=== PATIENT | female | born 1940 | race Caucasian/White ===

== ENCOUNTER 2016-11-13 10:43 | Emergency (ER) | payer MEDICARE ==
[~2016-11-13] VITALS: Ht 165.1 cm; Wt 55.0 kg
[~2016-11-13 10:43] MED LIST: ASPI81TA82 PO; BIOT5000 PO; CALCCHW25 PO; CHOL1CAP6 PO; CLA1000C PO; CO Q200C3 PO; GLUC500C3 PO; IRBE150T4 PO; LEVO.1 PO; MAGN500T4 PO; OMEG5CAP PO; POTA550T4 PO; TAB-TAB PO; VITA10002 PO; [UNRECOGNIZED DRUG - OTHER] PO
[2016-11-13 10:45] VITALS: BP 188/77; PULSE 107; RESP 18; TEMP 98.4; O2SAT 96
--- NOTE | 2016-11-13 10:52 | PD ---
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 Endorses GUTIERRES. Patient denies chest pain, palpitations, fevers, chills, rhinorrhea, abdominal pain, nausea, vomiting. Patient states that she was feeling well yesterday, saw her PCP for a scheduled checkup which was normal. She endorses receiving this year's flu vaccination. Endorses sick contacts, states family members have had similar symptoms. PCP is Dr.Chris Rubio, career development consultant Dr. Juan Orourke. PFSH Past Medical History Asthma: Yes Cancer: Yes (SKIN CANCERS) Cardiovascular Problems: Yes (HEART MURMUR, LEAKY AORTIC VALVE, MITRAL VALVUE ISSUE) Diminished Hearing: No Endocrine: Yes Genitourinary: No Hypertension: Yes Musculoskeletal: Yes (STIFFNESS IN NECK, LEG CRAMPS AT NIGHT) Neurologic: No Psychiatric: No Respiratory: No Immunizations Current: Yes Thyroid Disease: Yes (MASS IN THYROID) Past Surgical History Abdominal Surgery: Yes (APPENDECTOMY) Appendectomy: Yes Body Medical Devices: BREAST IMPLANTS Endocrine Surgery: Yes (THROIDECTOMY) Gynecologic Surgery: Yes (HYSTERECTOMY) Hysterectomy: Yes Oral Surgery: Yes (T&A) Thoracic Surgery: Yes (BREAST IMPLANTS) Tonsillectomy: Yes Other Surgery: Yes Social History Alcohol Use: No Tobacco Use: No Substance Use: No Allergies-Medications (Allergen,Severity, Reaction): Coded Allergies: Contrast Media (Verified Allergy, Severe, Anaphylaxis, 03/22/15) Iohexol (OMNIPAQUE) (Verified Allergy, Severe, Anaphylaxis, 03/22/15) Reported Meds & Prescriptions Reported Meds & Active Scripts Active Reported Aspir-81 (Aspirin) 81 Mg Tab 81 Mg PO DAILY Cla (Safflower Oil) 1,000 Mg Cap 1,000 Mg PO DAILY Glucosamine (Glucosamine Hydrochloride) 500 Mg Tab 1,500 Mg PO DAILY Calcium + D (Calcium Carbonate/Cholecalciferol) Chw 1 Tab PO HS Magnesium 500 Mg Tab 500 Mg PO DAILY [Maxamino] 1,200 Mg PO DAILY Biotin 5 000 Tab 10,000 Mcg PO DAILY Potassium Gluconate 550 mg (Potassium Gluconate) 550 Mg Tab 1 Tab PO DAILY Co Q10 (Coenzyme Q10) 200 Mg Cap 200 Mg PO DAILY Fish Oil 1200 mg ([place]-3 Fatty Acids) 1 Cap Cap 1 Cap PO DAILY Vitamin D-3 (Cholecalciferol) 1,000 Unit Tab 1,000 Unit PO DAILY Vitamin B12 (Cyanocobalamin) 1,000 Mcg Tab 5,000 Mcg PO DAILY Multivitamin (Multivitamins) 1 Tab Tab 1 Tab PO DAILY Irbesartan 150 Mg Tab 150 Mg PO DAILY Synthroid 100 mcg (Levothyroxine Sodium) 100 Mcg Tab 100 Mcg PO DAILY Review of Systems Except as stated in HPI: all other systems reviewed are Neg Physical Exam Narrative GENERAL: Well-nourished, well-developed white female in no acute distress. Patient's voice is hoarse and raspy, secondary to vocal cord paralysis. SKIN: Warm and dry. HEAD: Normocephalic. EYES: No scleral icterus. No injection or drainage. NECK: Supple, trachea midline. No JVD or lymphadenopathy. CARDIOVASCULAR: Regular rate and rhythm without murmurs, gallops, or rubs. RESPIRATORY: Breath sounds equal bilaterally. Coarse breath sounds in all lung perez. + accessory muscle use. GASTROINTESTINAL: Abdomen soft, non-tender, nondistended. MUSCULOSKELETAL: No cyanosis, or edema. Hohmann sign negative bilaterally. BACK: No obvious deformity. No CVA tenderness. Data Data Last Documented VS Vital Signs Date Time Temp Pulse Resp B/P Pulse Ox O2 Delivery O2 Flow Rate FiO2 11/13/16 11:29 97 Room Air 11/13/16 11:29 100 24 171/82 11/13/16 10:45 98.4 Orders Complete Blood Count With Diff (11/13/16 10:54) Iv Access Insert/Monitor (11/13/16 10:54) Oxygen Administration (11/13/16 10:54) Oximetry (11/13/16 10:54) Electrocardiogram (11/13/16 10:54) Comprehensive Metabolic Panel (11/13/16 11:02) B-Type Natriuretic Peptide (11/13/16 11:02) Act Partial Throm Time (Ptt) (11/13/16 11:02) Prothrombin Time / Inr (Pt) (11/13/16 11:02) Magnesium (Mg) (11/13/16 11:02) Ckmb (Isoenzyme) Profile (11/13/16 11:02) Troponin I (11/13/16 11:02) Urinalysis - C+S If Indicated (11/13/16 11:02) Influenzae A/B Antigen (11/13/16 11:02) Blood Culture (11/13/16 11:02) Ecg Monitoring (11/13/16 11:02) Chest, Single Ap (11/13/16 11:02) Sodium Chloride 0.9% Flush (Ns Flush) (11/13/16 11:15) Albuterol-Ipratropium Neb (Duoneb Neb) (11/13/16 11:15) Dexamethasone Inj (Decadron Inj) (11/13/16 11:15) D-Dimer (11/13/16 11:41) Dexamethasone Inj (Decadron Inj) (11/13/16 11:45) Labs Laboratory Tests Test 11/13/16 11:05 White Blood Count 4.5 TH/MM3 Red Blood Count 4.85 MIL/MM3 Hemoglobin 15.1 GM/DL Hematocrit 45.1 % Mean Corpuscular Volume 92.8 FL Mean Corpuscular Hemoglobin 31.1 PG Mean Corpuscular Hemoglobin 33.5 % Concent Red Cell Distribution Width 14.5 % Platelet Count 202 TH/MM3 Mean Platelet Volume 8.3 FL Neutrophils (%) (Auto) 62.6 % Lymphocytes (%) (Auto) 21.5 % Monocytes (%) (Auto) 14.5 % Eosinophils (%) (Auto) 0.4 % Basophils (%) (Auto) 1.0 % Neutrophils # (Auto) 2.8 TH/MM3 Lymphocytes # (Auto) 1.0 TH/MM3 Monocytes # (Auto) 0.7 TH/MM3 Eosinophils # (Auto) 0.0 TH/MM3 Basophils # (Auto) 0.0 TH/MM3 CBC Comment DIFF FINAL Differential Comment Prothrombin Time 11.2 SEC Prothromb Time International 1.0 RATIO Ratio Activated Partial 27.5 SEC Thromboplast Time MDM Medical Decision Making Medical Screen Exam Complete: Yes Emergency Medical Condition: Yes Differential Diagnosis Influenza versus pneumonia versus aspiration pneumonia versus PE versus CHF versus other Narrative Course 76 year old female with PMH of severe AI with normal EF, glottal stenosis, 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 Patient denies chest pain, palpitations, fevers, chills, rhinorrhea, abdominal pain, nausea, vomiting. She endorses this year's flu vaccination. Endorses sick contacts, states family members have had similar symptoms. PCP is Dr.Chris Rubio, career development consultant Dr. Juan Orourke. Vitals reviewed. Patient is afebrile, tachycardic rate 107, 96% O2 saturation on room air, BP 188 /77 on presentation. Physical exam reveals a nontoxic-appearing white female in no acute distress. Her voice is raspy and she is unable to project secondary to vocal cord paralysis. There are coarse lung sounds in bilateral lung perez. Equal pulses in the extremities bilaterally. No lower extremity edema noted. Lab work, EKG, chest x-ray, blood cultures ordered. The patient was administered duo nebs 2. She'll be transferred to a medical bed under the care of Dr. Cheney. Please see his note for disposition. She Ramos Nov 13, 2016 10:52
[2016-11-13] MEDS: RESP: ALBUTEROL 2.5 MG/IPRATROPIUM 0.5 MG NEB (SCH) INH (11:05)
[2016-11-13] MEDS ORDERED: SODIUM CHLORIDE 0.9% FLUSH 5 ML FLUSH IVF PRN (11:15)
[2016-11-13] MEDS ORDERED: DEXAMETHASONE SOD PHOS 4 MG/ML VIAL IM ONE (11:15)
[2016-11-13 11:29] VITALS: BP 171/82; PULSE 100; RESP 24; O2SAT 97; O2SAT 98
[2016-11-13 11:30] LABS: AUTOMATED NEUTROPHIL # 2.8 TH/MM3 (1.8-7.7); EOSINOPHIL % 0.4 % (0.0-4.0); HEMATOCRIT 45.1 % (35.0-46.0); HEMO FLAGS DIFF FINAL; LYMPH % 21.5 % (9.0-44.0); MEAN CELL VOLUME 92.8 FL (80.0-100.0); MEAN CORPUSCULAR HEMOGLOBIN 31.1 PG (27.0-34.0); MEAN CORPUSCULAR HGB CONC 33.5 % (32.0-36.0); MONO % 14.5 % (0.0-8.0); NEUT % 62.6 % (16.0-70.0); PLATELET COUNT 202 TH/MM3 (150-450); RED BLOOD COUNT 4.85 MIL/MM3 (4.00-5.30); RED CELL DISTRIBUTION WIDTH 14.5 % (11.6-17.2); WHITE BLOOD COUNT 4.5 TH/MM3 (4.0-11.0)
[2016-11-13 11:35] LABS: APTT (PATIENT) 27.5 SEC (24.3-30.1); PROTHROMBIN TIME - PATIENT 11.2 SEC (9.8-11.6)
[2016-11-13] MEDS ORDERED: DEXAMETHASONE SOD PHOS 4 MG/ML VIAL IV PUSH ONE (11:45)
--- NOTE | 2016-11-13 11:49 | PD ---
Physical Exam Date Seen by Provider: Nov 13, 2016 Time Seen by Provider: 11:47 Narrative The patient is a 76 year-old female was initially evaluated by the mid -level provider, please refer to the initial history, physical, diagnostic evaluation, treatment modality plan. The patient was signed out with labs, x- ray, and disposition pending. Data Data Last Documented VS Vital Signs Date Time Temp Pulse Resp B/P Pulse Ox O2 Delivery O2 Flow Rate FiO2 11/13/16 16:06 96 18 164/72 95 Room Air 11/13/16 10:45 98.4 Orders Complete Blood Count With Diff (11/13/16 10:54) Iv Access Insert/Monitor (11/13/16 10:54) Oxygen Administration (11/13/16 10:54) Oximetry (11/13/16 10:54) Electrocardiogram (11/13/16 10:54) Comprehensive Metabolic Panel (11/13/16 11:02) B-Type Natriuretic Peptide (11/13/16 11:02) Act Partial Throm Time (Ptt) (11/13/16 11:02) Prothrombin Time / Inr (Pt) (11/13/16 11:02) Magnesium (Mg) (11/13/16 11:02) Ckmb (Isoenzyme) Profile (11/13/16 11:02) Troponin I (11/13/16 11:02) Urinalysis - C+S If Indicated (11/13/16 11:02) Influenzae A/B Antigen (11/13/16 11:02) Blood Culture (11/13/16 11:02) Ecg Monitoring (11/13/16 11:02) Chest, Single Ap (11/13/16 11:02) Sodium Chloride 0.9% Flush (Ns Flush) (11/13/16 11:15) Albuterol-Ipratropium Neb (Duoneb Neb) (11/13/16 11:15) Dexamethasone Inj (Decadron Inj) (11/13/16 11:15) D-Dimer (11/13/16 11:41) Dexamethasone Inj (Decadron Inj) (11/13/16 11:45) CKMB (11/13/16 11:05) CKMB% (11/13/16 11:05) Ventilation & Perfusion Scan (11/13/16 ) Labs Laboratory Tests Test 11/13/16 11/13/16 11:05 11:49 White Blood Count 4.5 TH/MM3 Red Blood Count 4.85 MIL/MM3 Hemoglobin 15.1 GM/DL Hematocrit 45.1 % Mean Corpuscular Volume 92.8 FL Mean Corpuscular Hemoglobin 31.1 PG Mean Corpuscular Hemoglobin 33.5 % Concent Red Cell Distribution Width 14.5 % Platelet Count 202 TH/MM3 Mean Platelet Volume 8.3 FL Neutrophils (%) (Auto) 62.6 % Lymphocytes (%) (Auto) 21.5 % Monocytes (%) (Auto) 14.5 % Eosinophils (%) (Auto) 0.4 % Basophils (%) (Auto) 1.0 % Neutrophils # (Auto) 2.8 TH/MM3 Lymphocytes # (Auto) 1.0 TH/MM3 Monocytes # (Auto) 0.7 TH/MM3 Eosinophils # (Auto) 0.0 TH/MM3 Basophils # (Auto) 0.0 TH/MM3 CBC Comment DIFF FINAL Differential Comment Prothrombin Time 11.2 SEC Prothromb Time International 1.0 RATIO Ratio Activated Partial 27.5 SEC Thromboplast Time Sodium Level 138 MEQ/L Potassium Level 4.2 MEQ/L Chloride Level 104 MEQ/L Carbon Dioxide Level 27.2 MEQ/L Anion Gap 7 MEQ/L Blood Urea Nitrogen 17 MG/DL Creatinine 0.75 MG/DL Estimat Glomerular Filtration 75 ML/MIN Rate Random Glucose 97 MG/DL Calcium Level 8.9 MG/DL Magnesium Level 2.0 MG/DL Total Bilirubin 0.8 MG/DL Aspartate Amino Transf 35 U/L (AST/SGOT) Alanine Aminotransferase 28 U/L (ALT/SGPT) Alkaline Phosphatase 79 U/L Total Creatine Kinase 378 U/L Creatine Kinase MB 3.6 NG/ML Creatine Kinase MB % 1.0 % Troponin I 0.02 NG/ML B-Type Natriuretic Peptide 48 PG/ML Total Protein 7.9 GM/DL Albumin 4.1 GM/DL D-Dimer Quantitative (PE/DVT) 0.71 MG/L [facility] Medical Record Reviewed: Yes Supervised Visit with MONICA: Yes Interpretation(s) Laboratory Tests Test 11/13/16 11/13/16 11:05 11:49 White Blood Count 4.5 TH/MM3 Red Blood Count 4.85 MIL/MM3 Hemoglobin 15.1 GM/DL Hematocrit 45.1 % Mean Corpuscular Volume 92.8 FL Mean Corpuscular Hemoglobin 31.1 PG Mean Corpuscular Hemoglobin 33.5 % Concent Red Cell Distribution Width 14.5 % Platelet Count 202 TH/MM3 Mean Platelet Volume 8.3 FL Neutrophils (%) (Auto) 62.6 % Lymphocytes (%) (Auto) 21.5 % Monocytes (%) (Auto) 14.5 % Eosinophils (%) (Auto) 0.4 % Basophils (%) (Auto) 1.0 % Neutrophils # (Auto) 2.8 TH/MM3 Lymphocytes # (Auto) 1.0 TH/MM3 Monocytes # (Auto) 0.7 TH/MM3 Eosinophils # (Auto) 0.0 TH/MM3 Basophils # (Auto) 0.0 TH/MM3 CBC Comment DIFF FINAL Differential Comment Prothrombin Time 11.2 SEC Prothromb Time International 1.0 RATIO Ratio Activated Partial 27.5 SEC Thromboplast Time Sodium Level 138 MEQ/L Potassium Level 4.2 MEQ/L Chloride Level 104 MEQ/L Carbon Dioxide Level 27.2 MEQ/L Anion Gap 7 MEQ/L Blood Urea Nitrogen 17 MG/DL Creatinine 0.75 MG/DL Estimat Glomerular Filtration 75 ML/MIN Rate Random Glucose 97 MG/DL Calcium Level 8.9 MG/DL Magnesium Level 2.0 MG/DL Total Bilirubin 0.8 MG/DL Aspartate Amino Transf 35 U/L (AST/SGOT) Alanine Aminotransferase 28 U/L (ALT/SGPT) Alkaline Phosphatase 79 U/L Total Creatine Kinase 378 U/L Creatine Kinase MB 3.6 NG/ML Creatine Kinase MB % 1.0 % Troponin I 0.02 NG/ML B-Type Natriuretic Peptide 48 PG/ML Total Protein 7.9 GM/DL Albumin 4.1 GM/DL D-Dimer Quantitative (PE/DVT) 0.71 MG/L FEU Last Impressions Chest X-Ray 11/13/16 1102 Signed Impressions: Service Date/Time: October 11:38 - CONCLUSION: 1. There is obscuration of the left costophrenic sulcus which could be related to small pleural effusion or potentially obscured due to the adjacent heart. 2. Hazy opacity at the right lung base most likely representing atelectasis. Bj Berger MD Lung Scan- Nuclear Medicine 11/13/16 0000 Signed Impressions: Service Date/Time: October 15:02 - CONCLUSION: 1. The examination is negative for pulmonary embolus. Franklin Cha MD Differential Diagnosis Differential diagnosis includes reactive airway disease, bronchitis, pneumonia, congestive heart failure, cardiomyopathy, pleural effusion, pneumothorax, pulmonary embolism, acute coronary syndrome. Narrative Course I, Dr. Cheney, have reviewed the advance practice practitioner's documentation and am in agreement, met with the patient face to face, made the diagnosis, and the medical decision making was done by me. *My assessment and Findings: 76-year-old female with a history of partial vocal cord paralysis on the right secondary to thyroid surgery urine half ago by Dr. Chauhan. The patient notes a 2 day history of shortness of breath with worsening symptoms. The patient has exertional symptoms of shortness of breath as well as mild orthopnea. She also complains of a dry nonproductive cough, states she cannot "get the phlegm out ". The patient denies any history of bronchitis, COPD, asthma, or congestive heart failure. She denies any history of tobacco use. The patient denies any company chest pain with her shortness of breath, but does noted exertional, worse with climbing stairs, and mildly alleviated at rest. The patient denies any history of pulmonary embolism, DVT, recent hospitalizations, recent surgery, or recent prolonged travel. She denies any swollen of the lower extremities. Therefore, chest x-ray was obtained, d-dimer was sent to lab to evaluate the necessity to rule out PE. Patient is allergic to contrast media, therefore, no initial CT pulmonary angiogram was ordered. The patient was administered Decadron intravenously and duo nebs. The patient's VQ scan is negative. The patient does have a nebulizer machine at home that she can use, will be treated for bronchitis. The patient does have aortic sent insufficiency insufficiency, recently had an echocardiogram performed by her deputy insurance commissioner, Dr. Orourke, on October 30, 2016. She is advised to follow-up with her primary physician and her deputy insurance commissioner. Diagnosis Primary Impression: Bronchitis Additional Impression: Dyspnea Qualified Code: R06.00 - Dyspnea, unspecified type Patient Instructions: General Instructions Additional Instruction: Medications as directed. Follow-up with your primary physician. Return if symptoms worsen or progress. Please provide a patient a copy of her V/Q results , chest x-ray results, and lab results at discharge. Med/Other Pt SpecificInfo: Prescription(s) given Scripts Guaifenesin-Codeine Liq 100-10 Mg/5 Ml Soln5 Ml PO Q6H PRN (COUGH) #1 BOTTLE Ref 0 Prov:Dewey Cheney MD 11/13/16 Albuterol Neb 2.5 Mg/3 Ml Neb2.5 Mg NEB Q4HR NEB #60 NEBULE Ref 0 While awake Prov:Dewey Cheney MD 11/13/16 Prednisone (Deltasone)20 Mg Tab40 Mg PO DAILY 4 Days Ref 0 Prov:Dewey Cheney MD 11/13/16 Azithromycin (Zithromax Z-Nirav)250 Mg Avcs524 Mg PO DIRECTED #1 DSPK Ref 0 500 MG (2 tabs) day 1, then 1 tab days 2-5. Prov:Dewey Cheney MD 11/13/16 Disposition: 01 DISCHARGE HOME Condition: Stable Dewey Cheney MD Nov 13, 2016 11:49
[2016-11-13 11:54] LABS: ALKALINE PHOSPHATASE 79 U/L (45-117); ALT (GPT) 28 U/L (10-53); ANION GAP 7 MEQ/L (5-15); AST (GOT) 35 U/L (15-37); BICARBONATE 27.2 MEQ/L (21.0-32.0); BLOOD UREA NITROGEN 17 MG/DL (7-18); CHLORIDE 104 MEQ/L (98-107); CREATINE KINASE 378 U/L (26-192); GLOMERULAR FILTRATION RATE 75 ML/MIN (>89); SODIUM (NA) 138 MEQ/L (136-145); TOTAL BILIRUBIN ADULT 0.8 MG/DL (0.2-1.0)
--- NOTE | 2016-11-13 11:54 | RADRPT ---
EXAM DATE/TIME: 11/13/2016 11:38 [facility] COMPARISON: CHEST SINGLE AP, January 15, 2015, 16:49. INDICATIONS : Short of breath. MEDICAL HISTORY : None. SURGICAL HISTORY : None. ENCOUNTER: Initial ACUITY: 1 day PAIN SCORE: 0/10 LOCATION: Bilateral chest FINDINGS: Portable AP view of the chest demonstrates a normal-sized cardiac silhouette with calcification of th e aorta. There is blunting of the left costophrenic sulcus and there is mild hazy opacity at the righ t lung base. No pneumothorax or definite airspace consolidation is seen. Bones and soft tissues demon strate no acute finding. Breast implants are present. CONCLUSION: 1. There is obscuration of the left costophrenic sulcus which could be related to small pleural effus ion or potentially obscured due to the adjacent heart. 2. Hazy opacity at the right lung base most likely representing atelectasis. Bj Berger MD on November 13, 2016 at 11:51 Board Certified Radiologist. This report was verified electronically.
[2016-11-13 12:02] LABS: POTASSIUM 4.2 MEQ/L (3.5-5.1)
[2016-11-13 12:15] LABS: CKMB 3.6 NG/ML (0.5-3.6)
[2016-11-13 12:21] VITALS: BP 178/78; PULSE 96; RESP 20; O2SAT 94
[2016-11-13] MEDS ORDERED: COQ1200C PO (12:31)
[2016-11-13] MEDS ORDERED: ASPI1TAB91 PO (12:31)
[2016-11-13] MEDS ORDERED: VITA100018 PO (12:31)
[2016-11-13] MEDS ORDERED: POTA2.5T PO (12:31)
[2016-11-13] MEDS ORDERED: BIOT1SUB PO (12:31)
[2016-11-13] MEDS ORDERED: MULT-135 PO (12:31)
[2016-11-13] MEDS ORDERED: LEVO100T5 PO (12:31)
[2016-11-13] MEDS ORDERED: CYAN1TAB22 PO (12:31)
[2016-11-13] MEDS ORDERED: IRBE150T15 PO (12:31)
[2016-11-13] MEDS ORDERED: CALCTAB80 PO (12:31)
[2016-11-13] MEDS ORDERED: GLUC500C5 PO (12:31)
[2016-11-13] MEDS ORDERED: OMEG5CAP PO (12:31)
[2016-11-13] MEDS ORDERED: MAGN500T4 PO (12:31)
--- NOTE | 2016-11-13 15:45 | RADRPT ---
EXAM DATE/TIME: 11/13/2016 15:02 [facility] COMPARISON: No previous studies available for comparison. INDICATIONS : Shortness of breath with tachycardia. DOSE: 7.2 mCi Tc99m MAA IV 1.1 mCi Tc99m DTPA aerosol MEDICAL HISTORY : Carcinoma, basal cell. SURGICAL HISTORY : Thyroidectomy. Hysterectomy. Breast implants. ENCOUNTER: Initial ACUITY: 2 days PAIN SCALE: 3/10 LOCATION: Bilateral chest TECHNIQUE: Following five minutes of tidal breathing of DTPA aerosol, planar images of the lungs were performed in eight projections. The patient was then injected with MAA, and eight-view perfusion scan was perf ormed. FINDINGS: There is a homogeneous pattern of aerosol delivery to the periphery of both lungs. No focal ventilat ory defects are seen. The perfusion lung scan demonstrates a homogenous pattern of uptake in both lungs. No segmental or s ubsegmental defects are seen. CONCLUSION: 1. The examination is negative for pulmonary embolus. Franklin Cha MD on November 13, 2016 at 15:43 Board Certified Radiologist. This report was verified electronically.
[2016-11-13 16:06] VITALS: BP 164/72; PULSE 96; RESP 18; O2SAT 95
[2016-11-13] MEDS ORDERED: ZITHTAB PO (16:48)
[2016-11-13] MEDS ORDERED: GUAI100S5 PO (16:48)
[2016-11-13] MEDS ORDERED: ALBU0.08 NEB (16:48)
[2016-11-13] MEDS ORDERED: PRED-503 PO (16:48)
--- NOTE | 2016-11-13 17:05 | EKG ---
Date Performed: 11/13/2016 Time Performed: 11:15:17 PTAGE: 76 years EKG: Sinus rhythm WITH FIRST DEGREE AV BLOCK POSSIBLE LEFT ATRIAL ENLARGEMENT SEPTAL MYOCARDIAL INFARCTION There is si gnificant artifact in particular the limb leads. ABNORMAL ECG PREVIOUS TRACING : 02/16/2006 14.22 DOCTOR: Atilio Muir Interpretating Date/Time 11/13/2016 17:03:17
== END 2016-11-13 21:46 | disposition home or self-care (01) ==
LOC: NEPE 10:43
DX: J40 Bronchitis, not specified as acute or chronic (principal); I10 Essential (primary) hypertension; I44.0 Atrioventricular block, first degree; R94.31 Abnormal electrocardiogram [ECG] [EKG]
CPT/HCPCS: 71010; 78582; 80053; 82550; 82552; 83735; 83880; 84484; 85025; 85379; 85610; 85730; 87040; 87804; 93005; 94664; 96374; 99285; A9540; A9567; J1100

== ENCOUNTER 2017-08-08 02:46 | Inpatient (IN) | payer MEDICARE ==
[~2017-08-08] VITALS: Ht 165.1 cm; Wt 58.0 kg
[2017-08-08] VITALS (12 sets, daily range): BP systolic 99–183; BP diastolic 53–79; PULSE 84–116; RESP 16–30; TEMP 98.2–98.6; O2SAT 94–99
[~2017-08-08 02:46] MED LIST changes: +ALBU0.08 NEB; +ASPI1TAB91 PO; -ASPI81TA82 PO; +BIOT1SUB PO; -BIOT5000 PO; -CALCCHW25 PO; +CALCTAB80 PO; -CHOL1CAP6 PO; -CLA1000C PO; -CO Q200C3 PO; +COQ1200C PO; +CYAN1TAB22 PO; -GLUC500C3 PO; +GLUC500C5 PO; +GUAI100S5 PO; +IRBE150T15 PO; -IRBE150T4 PO; -LEVO.1 PO; +LEVO100T5 PO; +MULT-135 PO; +POTA2.5T PO; -POTA550T4 PO; +PRED-503 PO; -TAB-TAB PO; +VITA100018 PO; -VITA10002 PO; +ZITHTAB PO; -[UNRECOGNIZED DRUG - OTHER] PO
--- NOTE | 2017-08-08 03:10 | PD ---
HPI Chief Complaint: Respiratory Symptoms Time Seen by Provider: 02:58 Travel History International Travel<30 days: No Contact w/Intl Traveler<30days: No Traveled to known affect area: No History of Present Illness HPI Patient is a 77-year-old female presents emergency department for evaluation of shortness of breath. 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 Patient was given a dose of DuoNeb in route states his somewhat. She is tachycardic on arrival, denies any chest pain or pressure. States she's never had any heart problems or lung problems in the past. Does not have a diagnosis of COPD. No fever no cough. Patient has not seen her primary care physician since this happened a few months ago. PFSH Past Medical History Asthma: Yes Cancer: Yes (SKIN CANCERS) Cardiovascular Problems: Yes (HEART MURMUR, LEAKY AORTIC VALVE, MITRAL VALVUE ISSUE) Diminished Hearing: No Endocrine: Yes Gastrointestinal Disorders: No Genitourinary: No Hypertension: Yes Medical other: Yes (VOICE HOARSE FROM PREVIOUS SURGERY) Musculoskeletal: Yes (STIFFNESS IN NECK, LEG CRAMPS AT NIGHT) Neurologic: No Psychiatric: No Respiratory: No Immunizations Current: Yes Thyroid Disease: Yes (MASS IN THYROID, surgically removed vocal cords partially paralyzed) ?: Not Past Surgical History Abdominal Surgery: Yes (APPENDECTOMY) Appendectomy: Yes Body Medical Devices: BREAST IMPLANTS Endocrine Surgery: Yes (THROIDECTOMY) Gynecologic Surgery: Yes (HYSTERECTOMY) Hysterectomy: Yes Neurologic Surgery: No Oral Surgery: Yes (T&A) Thoracic Surgery: Yes (BREAST IMPLANTS) Tonsillectomy: Yes Other Surgery: Yes Social History Alcohol Use: No Tobacco Use: No Substance Use: No Allergies-Medications (Allergen,Severity, Reaction): Coded Allergies: diatrizoate meglumine (Unverified Allergy, Severe, Anaphylaxis, 06/02/17) gadobenic acid (Unverified Allergy, Severe, Anaphylaxis, 06/02/17) gadodiamide (Unverified Allergy, Severe, Anaphylaxis, 06/02/17) gadoteridol (Unverified Allergy, Severe, Anaphylaxis, 06/02/17) iodixanol (Unverified Allergy, Severe, Anaphylaxis, 06/02/17) iohexol (Unverified Allergy, Severe, Anaphylaxis, 06/02/17) Reported Meds & Prescriptions Reported Meds & Active Scripts Active Albuterol Neb (Albuterol Sulfate) 2.5 Mg/3 Ml Neb 2.5 Mg NEB Q4HR NEB While awake Reported Potassium Gluconate 550 Mg Tab 550 Mg PO DAILY Glucosamine (Glucosamine Sulfate) 500 Mg Cap 500 Mg PO DAILY Vitamin B-12 (Cyanocobalamin) 5,000 Mcg Tab 5,000 Mcg PO DAILY Vitamin D3 (Cholecalciferol) 1,000 Unit Tab 1,000 Units PO DAILY Calcium 1000 + D (Calcium Carbonate-Cholecalciferol) 1,000-800 Mg-Unit Tab 1 Tab PO DAILY Aspirin Adult Low Strength (Aspirin) 81 Mg Tabdr 81 Mg PO DAILY Irbesartan 150 Mg Tab 150 Mg PO DAILY Levothyroxine (Levothyroxine Sodium) 100 Mcg Tab 100 Mcg PO DAILY Review of Systems Except as stated in HPI: all other systems reviewed are Neg Physical Exam Narrative GENERAL: Well-developed well-nourished no obvious distress SKIN: Focused skin assessment warm/dry. HEAD: Atraumatic. Normocephalic. EYES: Pupils equal and round. No scleral icterus. No injection or drainage. ENT: No nasal bleeding or discharge. Mucous membranes pink and moist. NECK: Trachea midline. No JVD. CARDIOVASCULAR: Regular tachycardic with regular rhythm. No murmur appreciated. 2+ bilateral equal pulses in all 4 extremities per RESPIRATORY: No accessory muscle use. Clear to auscultation. Breath sounds equal bilaterally. Some high-pitched breath sounds are heard thought to be stridor from her vocal cord paralysis. She is able to suppress this when asked. Mildly tachypneic. GASTROINTESTINAL: Abdomen soft, non-tender, nondistended. Hepatic and splenic margins not palpable. MUSCULOSKELETAL: No obvious deformities. No clubbing. No cyanosis. No edema. NEUROLOGICAL: Awake and alert. No obvious cranial nerve deficits. Motor grossly within normal limits. Normal speech. PSYCHIATRIC: Appropriate mood and affect; insight and judgment normal. Data Data Last Documented VS Vital Signs Date Time Temp Pulse Resp B/P (MAP) Pulse Ox O2 Delivery O2 Flow Rate FiO2 08/08/17 06:10 103 16 138/66 (90) 98 Nasal Cannula 3.00 08/08/17 02:56 98.6 Orders Orders Electrocardiogram (08/08/17 03:07) Complete Blood Count With Diff (08/08/17 03:07) Comprehensive Metabolic Panel (08/08/17 03:07) Magnesium (Mg) (08/08/17 03:07) Troponin I (08/08/17 03:07) Chest, Single Ap (08/08/17 03:07) Ecg Monitoring (08/08/17 03:07) Iv Access Insert/Monitor (08/08/17 03:07) Oximetry (08/08/17 03:07) Oxygen Administration (08/08/17 03:07) Sodium Chloride 0.9% Flush (Ns Flush) (08/08/17 03:15) Albuterol-Ipratropium Neb (Duoneb Neb) (08/08/17 03:15) Aspirin Chew (Aspirin Chew) (08/08/17 04:15) Albuterol-Ipratropium Neb (Duoneb Neb) (08/08/17 04:15) D-Dimer (08/08/17 04:15) Act Partial Throm Time (Ptt) (08/08/17 04:15) Prothrombin Time / Inr (Pt) (08/08/17 04:15) Ventilation & Perfusion Scan (08/08/17 ) Troponin I (08/08/17 05:36) Electrocardiogram (08/08/17 ) Heparin Infusion SUJATHA.Q1H (08/08/17 06:46) Heparin Inj (Heparin Inj) (08/08/17 07:00) Heparin Inj (Heparin Inj) (08/08/17 13:00) Heparin Inj (Heparin Inj) (08/08/17 13:00) Heparin-D5w 25,000 U/250 Ml (Heparin-D5w (08/08/17 07:00) Cbc No Diff, Includes Plts (08/11/17 06:00) Occult Blood (Hemoccult) Stool (08/08/17 06:46) Admit Order (Ed Use Only) (08/08/17 ) Labs Laboratory Tests Test 08/08/17 03:20 08/08/17 04:30 08/08/17 05:08 White Blood Count 9.5 TH/MM3 Red Blood Count 4.34 MIL/MM3 Hemoglobin 13.8 GM/DL Hematocrit 41.4 % Mean Corpuscular Volume 95.5 FL Mean Corpuscular Hemoglobin 31.8 PG Mean Corpuscular Hemoglobin Concent 33.3 % Red Cell Distribution Width 13.4 % Platelet Count 251 TH/MM3 Mean Platelet Volume 8.1 FL Neutrophils (%) (Auto) 53.6 % Lymphocytes (%) (Auto) 34.5 % Monocytes (%) (Auto) 10.4 % Eosinophils (%) (Auto) 1.2 % Basophils (%) (Auto) 0.3 % Neutrophils # (Auto) 5.1 TH/MM3 Lymphocytes # (Auto) 3.3 TH/MM3 Monocytes # (Auto) 1.0 TH/MM3 Eosinophils # (Auto) 0.1 TH/MM3 Basophils # (Auto) 0.0 TH/MM3 CBC Comment DIFF FINAL Differential Comment Blood Urea Nitrogen 17 MG/DL Creatinine 0.70 MG/DL Random Glucose 123 MG/DL Total Protein 7.7 GM/DL Albumin 3.9 GM/DL Calcium Level 8.8 MG/DL Magnesium Level 2.0 MG/DL Alkaline Phosphatase 82 U/L Aspartate Amino Transf (AST/SGOT) 29 U/L Alanine Aminotransferase (ALT/SGPT) 30 U/L Total Bilirubin 0.4 MG/DL Sodium Level 140 MEQ/L Potassium Level 3.6 MEQ/L Chloride Level 107 MEQ/L Carbon Dioxide Level 28.3 MEQ/L Anion Gap 5 MEQ/L Estimat Glomerular Filtration Rate 81 ML/MIN Troponin I 0.06 NG/ML 1.26 NG/ML Prothrombin Time 10.5 SEC Prothromb Time International Ratio 1.0 RATIO Activated Partial Thromboplast Time 26.4 SEC D-Dimer Quantitative (PE/DVT) 0.74 MG/L FEU [facility] Medical Decision Making Medical Screen Exam Complete: Yes Emergency Medical Condition: Yes Differential Diagnosis COPD, asthma, ACS, PE. Narrative Course Patient roomed emergency department, given 2 additional DuoNeb's, on reassess the patient sleeping soundly in no distress. Troponin is equivocal at 0.06, d- dimer was sent and positive a 0.75. Patient has allergies to iodine and therefore a VQ scan was ordered. Discussed with the patient that difficult for me to except that DuoNeb is treating her shortness of breath from an upper airway standpoint. I think she needs further workup at her age and she is agreeable. Patient while waiting a VQ scan had repeat troponin, EKG performed. EKG nonischemic shows no change from the initial EKG. Troponin elevated to 1.26. Patient now has indication for heparinization, no contraindication noted on her history. Discussed results with her and recommended admission to the hospital. She states she has seen Dr. Orourke before for cardiology. She is familiar however with Dr. Nair. Patient still does need VQ scan but at this point has admission criteria and will pass a soft admitting team. Either way possible PE's are being treated with heparin. The patient has remained chest pain-free while in the emergency department. Diagnosis Primary Impression: NSTEMI (non-ST elevated myocardial infarction) Additional Impression: SOB (shortness of breath) Admitting Information Admitting Physician Requests: Admit Condition: Stable Juan Jose Martines MD Aug 08, 2017 03:10
[2017-08-08] MEDS ORDERED: RESP: ALBUTEROL 2.5 MG/IPRATROPIUM 0.5 MG NEB (SCH) NEB ONE ×2 (03:15→04:15)
[2017-08-08] MEDS ORDERED: SODIUM CHLORIDE 0.9% FLUSH 10 ML FLUSH IVF PRN (03:15)
[2017-08-08 03:36] LABS: AUTOMATED NEUTROPHIL # 5.1 TH/MM3 (1.8-7.7); BASOPHIL % 0.3 % (0.0-2.0); EOSINOPHIL # 0.1 TH/MM3 (0-0.4); EOSINOPHIL % 1.2 % (0.0-4.0); HEMATOCRIT 41.4 % (35.0-46.0); HEMO FLAGS DIFF FINAL; LYMPH % 34.5 % (9.0-44.0); LYMPHOCYTE # 3.3 TH/MM3 (1.0-4.8); MEAN CELL VOLUME 95.5 FL (80.0-100.0); MEAN CORPUSCULAR HEMOGLOBIN 31.8 PG (27.0-34.0); MEAN CORPUSCULAR HGB CONC 33.3 % (32.0-36.0); MONO % 10.4 % (0.0-8.0); NEUT % 53.6 % (16.0-70.0); PLATELET COUNT 251 TH/MM3 (150-450); RED BLOOD COUNT 4.34 MIL/MM3 (4.00-5.30); RED CELL DISTRIBUTION WIDTH 13.4 % (11.6-17.2); WHITE BLOOD COUNT 9.5 TH/MM3 (4.0-11.0)
--- NOTE | 2017-08-08 03:46 | RADRPT ---
EXAM DATE/TIME: 08/08/2017 03:10 [facility] COMPARISON: CHEST SINGLE AP, November 13, 2016, 11:38. INDICATIONS : Short of breath. MEDICAL HISTORY : Carcinoma, basal cell. Leaky aortic valve. SURGICAL HISTORY : Thyroidectomy. Hysterectomy. Breast implants. Frozen vocal chords. ENCOUNTER: Initial ACUITY: 1 day PAIN SCORE: 0/10 LOCATION: Bilateral chest FINDINGS: A single AP erect portable view of the chest was obtained and again demonstrates patchy opacity both lung bases with partial obscuration of left hemidiaphragm. The left costophrenic angle may be blunted . The heart size is mildly prominent. There is no perihilar edema. Overlying electrocardiogram leads are present. The bony thorax remains intact. CONCLUSION: No significant change. Hazy opacity remains at the lung bases and there is mild cardi omegaly. Behzad Pedroza MD on August 08, 2017 at 3:44 Board Certified Radiologist. This report was verified electronically.
[2017-08-08 04:01] LABS: ALKALINE PHOSPHATASE 82 U/L (45-117); ALT (GPT) 30 U/L (10-53); ANION GAP 5 MEQ/L (5-15); AST (GOT) 29 U/L (15-37); BICARBONATE 28.3 MEQ/L (21.0-32.0); BLOOD UREA NITROGEN 17 MG/DL (7-18); CHLORIDE 107 MEQ/L (98-107); GLOMERULAR FILTRATION RATE 81 ML/MIN (>89); SODIUM (NA) 140 MEQ/L (136-145); TOTAL BILIRUBIN ADULT 0.4 MG/DL (0.2-1.0)
[2017-08-08 04:02] LABS: POTASSIUM 3.6 MEQ/L (3.5-5.1)
[2017-08-08] MEDS ORDERED: ASPIRIN 81 MG CHEW TAB CHEW ONE (04:15)
[2017-08-08 05:15] LABS: APTT (PATIENT) 26.4 SEC (24.3-30.1); PROTHROMBIN TIME - PATIENT 10.5 SEC (9.8-11.6)
[2017-08-08] MEDS ORDERED: HEPARIN-D5W 25,000 U/250 ML 250 ML IV ONE (07:00)
[2017-08-08] MEDS ORDERED: HEPARIN SODIUM - IV 10,000 UNITS/10 ML VIAL IV ONE (07:00)
[2017-08-08] MEDS: SODIUM CHLOR 0.9% 1000 ML INJ 1,000 ML IV SCH ×2 (07:45→17:09)
--- NOTE | 2017-08-08 07:54 | HHI.HP ---
[facility] Service [facility] Primary Care Physician Chaz Yadav M.D. Admission Diagnosis NSTEMI Diagnoses: (1) NSTEMI (non-ST elevated myocardial infarction) Diagnosis: Principal Chief Complaint: shortness of breath Travel History International Travel<30 Days: No Contact w/Intl Traveler <30 Da: No Traveled to Known Affected Are: No History of Present Illness patient is a 77 y/o female with history of vocal cord paralysis after thyroidectomy, and hypertension, who presented to ER with sob. she says that she was at her usual state of health till this morning when she woke up with sob. she denies any chest pain, fever, chills, cough. she says that she had an episode of sob years ago which improved with albuterol treatment. at the time of my evaluation she was in no acute distress however still with sob, no chest pain. she's being followed up by for 'aortic leaky valve'. Review of Systems Constitutional: DENIES: Fever, Weight loss, Chills, Night Sweats Eyes: DENIES: Blurred vision, Diplopia, Vision loss, Double Vision Ears, nose, mouth, throat: DENIES: Tinnitus, Vertigo, Throat pain, Epistaxis Respiratory: COMPLAINS OF: Shortness of breath, DENIES: Apneas, Cough, Snoring , Wheezing, Hemoptysis, Sputum production Cardiovascular: DENIES: Chest pain, Palpitations, Syncope, Dyspnea on Exertion , PND, Lower Extremity Edema, Orthopnea, Claudication Gastrointestinal: DENIES: Abdominal pain, Black stools, Bloody stools, Constipation, Diarrhea, Nausea, Vomiting, Difficulty Swallowing, Anorexia Genitourinary: DENIES: Urinary frequency, Urgency, Hematuria, Dysuria Musculoskeletal: DENIES: Joint pain, Muscle aches, Stiffness, Joint Swelling Integumentary: DENIES: Rash Neurologic: DENIES: Abnormal gait, Headache, Localized weakness, Paresthesias, Seizures, Speech Problems, Tremor, Poor Balance Psychiatric: DENIES: Anxiety, Confusion, Mood changes, Depression, Hallucinations, Agitation, Suicidal Ideation, Homicidal Ideation, Delusions Past Family Social History Past Medical History hypertension hypothyroidism vocal cord paralysis Past Surgical History thyroidectomy appendectomy Reported Medications Potassium Gluconate 550 Mg Tab 550 Mg PO DAILY Glucosamine (Glucosamine Sulfate) 500 Mg Cap 500 Mg PO DAILY Vitamin B-12 (Cyanocobalamin) 5,000 Mcg Tab 5,000 Mcg PO DAILY Vitamin D3 (Cholecalciferol) 1,000 Unit Tab 1,000 Units PO DAILY Calcium 1000 + D (Calcium Carbonate-Cholecalciferol) 1,000-800 Mg-Unit Tab 1 Tab PO DAILY Aspirin Adult Low Strength (Aspirin) 81 Mg Tabdr 81 Mg PO DAILY Irbesartan 150 Mg Tab 150 Mg PO DAILY Levothyroxine (Levothyroxine Sodium) 100 Mcg Tab 100 Mcg PO DAILY Allergies: Coded Allergies: diatrizoate meglumine (Unverified Allergy, Severe, Anaphylaxis, 06/02/17) gadobenic acid (Unverified Allergy, Severe, Anaphylaxis, 06/02/17) gadodiamide (Unverified Allergy, Severe, Anaphylaxis, 06/02/17) gadoteridol (Unverified Allergy, Severe, Anaphylaxis, 06/02/17) iodixanol (Unverified Allergy, Severe, Anaphylaxis, 06/02/17) iohexol (Unverified Allergy, Severe, Anaphylaxis, 06/02/17) Active Ordered Medications Current Medications Sodium Chloride (NS Flush) 2 ml UNSCH PRN IVF FLUSH AFTER USING IV ACCESS; Start 08/08/17 at 03:15 Albuterol/ Ipratropium (Duoneb Neb) 1 ampule ONCE ONCE NEB Last administered on 08/08/17 03:18; Start 08/08/17 at 03:15; Stop 08/08/17 at 03:31; Status DC Aspirin (Aspirin Chew) 324 mg ONCE ONCE CHEW Last administered on 08/08/17 04:31; Start 08/08/17 at 04:15; Stop 08/08/17 at 04:16; Status DC Albuterol/ Ipratropium (Duoneb Neb) 1 ampule ONCE ONCE NEB Last administered on 08/08/17 04:33; Start 08/08/17 at 04:15; Stop 08/08/17 at 04:16; Status DC Heparin Sodium (Porcine) (Heparin Inj) 4,000 units ONCE ONCE IV Last administered on 08/08/17 07:29; Start 08/08/17 at 07:00; Stop 08/08/17 at 07 :01; Status DC Heparin Sodium (Porcine) (Heparin Inj) 5,000 units UNSCH PRN IV APTT LESS THAN 25; Start 08/08/17 at 13:00 Heparin Sodium (Porcine) (Heparin Inj) 2,500 units UNSCH PRN IV APTT 25 TO 39; Start 08/08/17 at 13:00 Heparin Sodium/ Dextrose 250 ml @ 6.6 mls/hr TITRATE ONCE IV ; Start at 07:00; Stop 08/09/17 at 20:52 Family History no CAD reported. Social History no smoking or drinking. Physical Exam Vital Signs Vital Signs Date Time Temp Pulse Resp B/P (MAP) Pulse Ox O2 Delivery O2 Flow Rate FiO2 08/08/17 06:10 103 16 138/66 (90) 98 Nasal Cannula 3.00 08/08/17 03:29 109 22 99 Aerosol Mask 08/08/17 03:15 99 Aerosol Mask 08/08/17 02:59 26 97 Nasal Cannula 2.00 08/08/17 02:56 98.6 113 30 171/76 (107) 98 Physical Exam GENERAL: This is a well-nourished, well-developed patient, in no apparent distress. SKIN: No rashes, ecchymoses or lesions. Cool and dry. HEAD: Atraumatic. Normocephalic. No temporal or scalp tenderness. EYES: Pupils equal round and reactive. Extraocular motions intact. No scleral icterus. No injection or drainage. ENT: Nose without bleeding, purulent drainage or septal hematoma. Throat without erythema, tonsillar hypertrophy or exudate. Uvula midline. Airway patent. NECK: Trachea midline. No JVD or lymphadenopathy. Supple, nontender, no meningeal signs. CARDIOVASCULAR: Regular rate and rhythm without murmurs, gallops, or rubs. RESPIRATORY: Clear to auscultation. Breath sounds equal bilaterally. No wheezes , rales, or rhonchi. GASTROINTESTINAL: Abdomen soft, non-tender, nondistended. No hepato-splenomegaly , or palpable masses. No guarding. MUSCULOSKELETAL: Extremities without clubbing, cyanosis, or edema. No joint tenderness, effusion, or edema noted. No calf tenderness. Negative Homans sign bilaterally. NEUROLOGICAL: Awake and alert. Cranial nerves II through XII intact. Motor and sensory grossly within normal limits. Five out of 5 muscle strength in all muscle groups. Normal speech. Laboratory Laboratory Tests Test 08/08/17 03:20 08/08/17 04:30 08/08/17 05:08 White Blood Count 9.5 Red Blood Count 4.34 Hemoglobin 13.8 Hematocrit 41.4 Mean Corpuscular Volume 95.5 Mean Corpuscular Hemoglobin 31.8 Mean Corpuscular Hemoglobin Concent 33.3 Red Cell Distribution Width 13.4 Platelet Count 251 Mean Platelet Volume 8.1 Neutrophils (%) (Auto) 53.6 Lymphocytes (%) (Auto) 34.5 Monocytes (%) (Auto) 10.4 Eosinophils (%) (Auto) 1.2 Basophils (%) (Auto) 0.3 Neutrophils # (Auto) 5.1 Lymphocytes # (Auto) 3.3 Monocytes # (Auto) 1.0 Eosinophils # (Auto) 0.1 Basophils # (Auto) 0.0 CBC Comment DIFF FINAL Differential Comment Blood Urea Nitrogen 17 Creatinine 0.70 Random Glucose 123 Total Protein 7.7 Albumin 3.9 Calcium Level 8.8 Magnesium Level 2.0 Alkaline Phosphatase 82 Aspartate Amino Transf (AST/SGOT) 29 Alanine Aminotransferase (ALT/SGPT) 30 Total Bilirubin 0.4 Sodium Level 140 Potassium Level 3.6 Chloride Level 107 Carbon Dioxide Level 28.3 Anion Gap 5 Estimat Glomerular Filtration Rate 81 Troponin I 0.06 1.26 Prothrombin Time 10.5 Prothromb Time International Ratio 1.0 Activated Partial Thromboplast Time 26.4 D-Dimer Quantitative (PE/DVT) 0.74 Result Diagram: 08/08/170 08/08/17 0320 Imaging Last Impressions Chest X-Ray 08/08/17 0307 Signed Impressions: Service Date/Time: Tuesday, August 08, 2017 03:10 - CONCLUSION: No significant change. Hazy opacity remains at the lung bases and there is mild cardiomegaly. Behzad Pedroza MD EKG; sinus tachycardia Caprini VTE Risk Assessment Caprini VTE Risk Assessment: Mod/High Risk (score >= 2) Caprini Risk Assessment Model Point Value = 1 Point Value = 2 Point Value = 3 Point Value = 5 Age 41-60 Minor surgery BMI > 25 kg/m2 Swollen legs Varicose veins or History of unexplained or recurrent spontaneous Oral contraceptives or hormone replacement Sepsis (< 1 month) Serious lung disease, including pneumonia (< 1 month) Abnormal pulmonary function Acute myocardial infarction Congestive heart failure (< 1 month) History of inflammatory bowel disease Medical patient at bed rest Age 61-74 Arthroscopic surgery Major open surgery (> 45 min) Laparoscopic surgery (> 45 min) Malignancy Confined to bed (> 72 hours) Immobilizing plaster cast Central venous access Age >= 75 History of VTE Family history of VTE Factor V Leiden Prothrombin [id number] Lupus anticoagulant Anticardiolipin antibodies Elevated serum homocysteine Heparin-induced thrombocytopenia Other congenital or acquired thrombophilia Stroke (< 1 month) Elective arthroplasty Hip, pelvis, or leg fracture Acute spinal cord injury (< 1 month) Prophylaxis Regimen Total Risk Factor Score Risk Level Prophylaxis Regimen 0-1 Low Early ambulation 2 Moderate Order ONE of the following: *Sequential Compression Device (SCD) *Heparin 5000 units SQ BID 3-4 Higher Order ONE of the following medications: *Heparin 5000 units SQ TID *Enoxaparin/Lovenox 40 mg SQ daily (WT < 150 kg, CrCl > 30 mL/min) *Enoxaparin/Lovenox 30 mg SQ daily (WT < 150 kg, CrCl > 10-29 mL/min) *Enoxaparin/Lovenox 30 mg SQ BID (WT < 150 kg, CrCl > 30 mL/min) AND/OR *Sequential Compression Device (SCD) 5 or more Highest Order ONE of the following medications: *Heparin 5000 units SQ TID (Preferred with Epidurals) *Enoxaparin/Lovenox 40 mg SQ daily (WT < 150 kg, CrCl > 30 mL/min) *Enoxaparin/Lovenox 30 mg SQ daily (WT < 150 kg, CrCl > 10-29 mL/min) *Enoxaparin/Lovenox 30 mg SQ BID (WT < 150 kg, CrCl > 30 mL/min) AND *Sequential Compression Device (SCD) Assessment and Plan Assessment and Plan A/P - NSTEMI received aspirin and started on Heparin drip. will trend the cardiac enzymes and consult cardiology. -sob with mildly elevated d-dimer; check V/Q scan to r/o PE- on Heparin drip -hypertension; hold irbesartan and start on metoprolol- continue to monitor. -hypothyroidism/ vocal cord paralysis- post thyroidectomy; resume levothyroxine -DVT prophylaxis; on Heparin drip. Discussed Condition With ER physician, the patient and her son. RN. Physician Certification 2 Midnight Certification Type: Admission for Inpatient Services Order for Inpatient Services The services are ordered in accordance with Medicare regulations or non- Medicare payer requirements, as applicable. In the case of services not specified as inpatient-only, they are appropriately provided as inpatient services in accordance with the 2-midnight benchmark. Estimated LOS (days): 2 days is the estimated time the patient will need to remain in the hospital, assuming treatment plan goals are met and no additional complications. Post-Hospital Plan: Home Physician Certification 2 Midnight Certification Type: Admission for Inpatient Services Order for Inpatient Services The services are ordered in accordance with Medicare regulations or non- Medicare payer requirements, as applicable. In the case of services not specified as inpatient-only, they are appropriately provided as inpatient services in accordance with the 2-midnight benchmark. Estimated LOS (days): 2 days is the estimated time the patient will need to remain in the hospital, assuming treatment plan goals are met and no additional complications. Post-Hospital Plan: Home Rian Elias MD Aug 08, 2017 07:54
[2017-08-08] MEDS ORDERED: LOSARTAN 50 MG TAB PO SCH (09:00)
--- NOTE | 2017-08-08 09:56 | RADRPT ---
EXAM DATE/TIME: 08/08/2017 08:37 [facility] COMPARISON: CHEST SINGLE AP, August 08, 2017, 3:10. LUNG VENTILATION & PERFUSION SCAN, November 13, 2016, 15:02. INDICATIONS : Dyspnea. DOSE: 0.78 mCi Tc99m DTPA 8.8 mCi Tc99m MAA MEDICAL HISTORY : Hypertension. SURGICAL HISTORY : Appendectomy. Thyroidectomy. ENCOUNTER: Initial ACUITY: 1 day PAIN SCALE: 0/10 LOCATION: Bilateral chest TECHNIQUE: Following five minutes of tidal breathing of DTPA aerosol, planar images of the lungs were performed in eight projections. The patient was then injected with MAA, and eight-view perfusion scan was perf ormed. FINDINGS: There is very little ventilation activity seen in the lungs. Most of the isotope is seen in the trach ea.. The perfusion lung scan demonstrates a homogenous pattern of uptake in both lungs. There is a small s ubsegmental defect seen in the anterior right midlung. CONCLUSION: Low probability for pulmonary embolus. Bj Dudley MD on August 08, 2017 at 9:46 Board Certified Radiologist. This report was verified electronically.
[2017-08-08] MEDS: METOPROLOL TARTRATE 25 MG TAB PO SCH ×2 (10:12→21:07)
[2017-08-08] MEDS: LEVOTHYROXINE SODIUM 100 MCG TAB PO SCH (10:12)
[2017-08-08] MEDS: RESP: ALBUTEROL 1.25 MG/3 ML NEB (PRN) NEB ×3 (11:00→21:11)
[2017-08-08] MEDS ORDERED: HEPARIN SODIUM - IV 10,000 UNITS/10 ML VIAL IV PRN ×2 (13:00)
[2017-08-08 16:48] LABS: APTT (PATIENT) 40.6 SEC (24.3-30.1)
--- NOTE | 2017-08-08 17:03 | EKG ---
Date Performed: 08/08/2017 Time Performed: 05:59:35 PTAGE: 77 years EKG: SINUS TACHYCARDIA POSSIBLE LEFT ATRIAL ENLARGEMENT MARKED LEFT AXIS DEVIATION ANTEROSEPTAL MYOCARDIAL INFARCTION ABNORMAL ECG PREVIOUS TRACING : 08/08/2017 03.00 Compared to previous tracing chnages of prior ant [place] more s ignificant DOCTOR: Alaina Webb Interpretating Date/Time 08/08/2017 17:03:09
--- NOTE | 2017-08-08 17:09 | EKG ---
Date Performed: 08/08/2017 Time Performed: 03:00:34 PTAGE: 77 years EKG: SINUS TACHYCARDIA LEFT ANTERIOR FASCICULAR BLOCK ANTEROSEPTAL MYOCARDIAL INFARCTION ABNORMA L ECG PREVIOUS TRACING : 08/08/2017 03.00 Compared to prior tracing no significant change DOCTOR: Alaina Webb Interpretating Date/Time 08/08/2017 17:08:44
--- NOTE | 2017-08-08 18:25 | PD.CONS ---
HPI Service Cardiology Consult Requested By Hospitalist Reason for Consult Elevated troponin/NSTEMI Primary Care Physician Chaz Yadav M.D. History of Present Illness Mrs. Rachel is a pleasant 77 year old known to Dr. Orourke. She has a history of moderate to severe aortic insufficiency, moderate mitral regurgitation, hypertension and hypothyroidism. She has vocal cord paralysis secondary to thyroidectomy. She presented to the ED with complaints of severe sob. She reports that she woke up abruptly last night with shortness of breath. She thought she was having a vocal cord spasm and that it would pass. The sob progressed and she called EMS for assistance. Initial troponin was 3.53. D-dimer was elevated at 0.74. VQ scan with low probability for PE. CXR with no acute findings. EKG - SINUS TACHYCARDIA LEFT ANTERIOR FASCICULAR BLOCK ANTEROSEPTAL MYOCARDIAL INFARCTION ABNORMAL ECG. She is on a heparin drip and is currently asymptomatic. She is sitting up in the chair, watching TV without complaints. Review of Systems Consitutional: DENIES: Fatigue, Fever, Chills, Weight gain, Weight loss Eyes: DENIES: Amaurosis Fugax, Change in vision HEENT: DENIES: Lightheadedness, Change in hearing Respiratory: COMPLAINS OF: Shortness of breath, DENIES: See HPI, Cough, Snoring , Wheezing, Sputum production Cardiovascular: DENIES: See HPI, Chest pain, Palpitations, Syncope, Tachycardia Gastrointestinal: DENIES: Nausea, Vomiting, Change in bowel habits, Reflux, Bloody stools, Melena Genitourinary: DENIES: Urinary incontinence, Difficulty voiding Integumentary: DENIES: Rash Neurologic: DENIES: Tingling or numbness, Memory problems, Poor Balance, Stroke symptoms Musculoskeletal: DENIES: Joint pain, Muscle pain, Limited range of motion, Back pain Psychiatric: DENIES: Anxiety, Depression, Sleep disturbances Hematologic: DENIES: Bruising tendencies, Bleeding tendencies Endocrine: DENIES: Weight gain, Weight loss, Thyroid disease Past Family Social History Allergies: Coded Allergies: diatrizoate meglumine (Unverified Allergy, Severe, Anaphylaxis, 06/02/17) gadobenic acid (Unverified Allergy, Severe, Anaphylaxis, 06/02/17) gadodiamide (Unverified Allergy, Severe, Anaphylaxis, 06/02/17) gadoteridol (Unverified Allergy, Severe, Anaphylaxis, 06/02/17) iodixanol (Unverified Allergy, Severe, Anaphylaxis, 06/02/17) iohexol (Unverified Allergy, Severe, Anaphylaxis, 06/02/17) Past Medical History Moderate to severe AI Moderate MR Hypertension Hypothyroidism Past Surgical History Hemithyroidectomy Appendectomy Reported Medications Reported Meds & Active Scripts Active Albuterol Neb (Albuterol Sulfate) 2.5 Mg/3 Ml Neb 2.5 Mg NEB Q4HR NEB While awake Reported Potassium Gluconate 550 Mg Tab 550 Mg PO DAILY Glucosamine (Glucosamine Sulfate) 500 Mg Cap 500 Mg PO DAILY Vitamin B-12 (Cyanocobalamin) 5,000 Mcg Tab 5,000 Mcg PO DAILY Vitamin D3 (Cholecalciferol) 1,000 Unit Tab 1,000 Units PO DAILY Calcium 1000 + D (Calcium Carbonate-Cholecalciferol) 1,000-800 Mg-Unit Tab 1 Tab PO DAILY Aspirin Adult Low Strength (Aspirin) 81 Mg Tabdr 81 Mg PO DAILY Irbesartan 150 Mg Tab 150 Mg PO DAILY Levothyroxine (Levothyroxine Sodium) 100 Mcg Tab 100 Mcg PO DAILY Active Ordered Medications Current Medications Medications (Trade) Dose Ordered Sig/Herman Route Start Time Stop Time Status Last Admin (NS Flush) 2 ml UNSCH PRN IVF 08/08/17 03:15 (Heparin Inj) 5,000 units UNSCH PRN IV 08/08/17 13:00 (Heparin Inj) 2,500 units UNSCH PRN IV 08/08/17 13:00 Heparin Sodium/ Dextrose 250 ml @ 6.6 mls/hr TITRATE ONCE IV 08/08/17 07:00 08/09/17 20:52 08/08/17 07:32 (Synthroid) 100 mcg DAILY@0600 PO 08/08/17 09:00 08/08/17 10:12 (Cozaar) 50 mg DAILY PO 08/08/17 09:00 Future Hold (Albuterol Neb) 1.25 mg Q6HR NEB PRN NEB 08/08/17 07:45 08/08/17 16:43 (Ecotrin Ec) 81 mg DAILY PO 08/09/17 09:00 Sodium Chloride 1,000 ml @ 84 mls/hr [id number] IV 08/08/17 07:45 08/08/17 17:09 (Lopressor) 25 mg Q12HR PO 08/08/17 09:00 08/08/17 10:12 Family History Father at 79 Mother age 101 - alive and well Social History 2-3 caffeine daily non-smoker, non-drinker retired, , lives with Physical Exam Vital Signs Vital Signs Date Time Temp Pulse Resp B/P (MAP) Pulse Ox O2 Delivery O2 Flow Rate FiO2 08/08/17 16:00 98.3 91 20 111/56 (74) 99 08/08/17 15:07 Nasal Cannula 2.00 08/08/17 12:00 98.2 84 20 99/53 (68) 98 08/08/17 11:03 96 Nasal Cannula 2.00 08/08/17 09:45 98.2 112 20 142/71 (94) 94 08/08/17 09:05 08/08/17 07:43 116 28 183/79 (113) 94 Nasal Cannula 3.00 08/08/17 06:10 103 16 138/66 (90) 98 Nasal Cannula 3.00 08/08/17 03:29 109 22 99 Aerosol Mask 08/08/17 03:15 99 Aerosol Mask 08/08/17 02:59 26 97 Nasal Cannula 2.00 08/08/17 02:56 98.6 113 30 171/76 (107) 98 Physical Exam GENERAL: Awake, alert. No distress. SKIN: Warm and dry. HEAD: Atraumatic. Normocephalic. EYES: Pupils equal and round. No scleral icterus. No injection or drainage. ENT: No nasal bleeding or discharge. Mucous membranes pink and moist. NECK: Trachea midline. No JVD. CARDIOVASCULAR: Regular rate and rhythm. Systolic murmur over the apex. Diastolic murmur of the aortic area. RESPIRATORY: No accessory muscle use. Clear to auscultation. Breath sounds equal bilaterally. GASTROINTESTINAL: Abdomen soft, non-tender, nondistended. MUSCULOSKELETAL: Extremities without clubbing, cyanosis, or edema. No obvious deformities. NEUROLOGICAL: Awake and alert. No obvious cranial nerve deficits. Motor grossly within normal limits. Five out of 5 muscle strength in the arms and legs. Voice hoarse. PSYCHIATRIC: Appropriate mood and affect; insight and judgment normal. Laboratory Laboratory Tests Test 08/08/17 03:20 08/08/17 04:30 08/08/17 05:08 08/08/17 11:42 White Blood Count 9.5 Red Blood Count 4.34 Hemoglobin 13.8 Hematocrit 41.4 Mean Corpuscular Volume 95.5 Mean Corpuscular Hemoglobin 31.8 Mean Corpuscular Hemoglobin Concent 33.3 Red Cell Distribution Width 13.4 Platelet Count 251 Mean Platelet Volume 8.1 Neutrophils (%) (Auto) 53.6 Lymphocytes (%) (Auto) 34.5 Monocytes (%) (Auto) 10.4 Eosinophils (%) (Auto) 1.2 Basophils (%) (Auto) 0.3 Neutrophils # (Auto) 5.1 Lymphocytes # (Auto) 3.3 Monocytes # (Auto) 1.0 Eosinophils # (Auto) 0.1 Basophils # (Auto) 0.0 CBC Comment DIFF FINAL Differential Comment Blood Urea Nitrogen 17 Creatinine 0.70 Random Glucose 123 Total Protein 7.7 Albumin 3.9 Calcium Level 8.8 Magnesium Level 2.0 Alkaline Phosphatase 82 Aspartate Amino Transf (AST/SGOT) 29 Alanine Aminotransferase (ALT/SGPT) 30 Total Bilirubin 0.4 Sodium Level 140 Potassium Level 3.6 Chloride Level 107 Carbon Dioxide Level 28.3 Anion Gap 5 Estimat Glomerular Filtration Rate 81 Troponin I 0.06 1.26 3.53 Prothrombin Time 10.5 Prothromb Time International Ratio 1.0 Activated Partial Thromboplast Time 26.4 D-Dimer Quantitative (PE/DVT) 0.74 Test 08/08/17 15:29 Activated Partial Thromboplast Time 40.6 Date/Time Source Procedure Growth Status 08/08/17 17:30 Stool Stool Stool Occult Blood (BONG) Pending Received Result Diagram: 08/08/17 0320 08/08/17 0320 Imaging Last 24 hours Impressions Chest X-Ray 08/08/17 0307 Signed Impressions: Service Date/Time: Tuesday, August 08, 2017 03:10 - CONCLUSION: No significant change. Hazy opacity remains at the lung bases and there is mild cardiomegaly. Behzad Pedroza MD Lung Scan-V Nuclear Medicine 08/08/17 0000 Signed Impressions: Service Date/Time: Tuesday, August 08, 2017 08:37 - CONCLUSION: Low probability for pulmonary embolus. Bj Dudley MD Assessment and Plan Assessment and Plan NSTEMI Moderate to severe Aortic insufficiency Moderate mitral regurgitation Hypertension Hypothyroidism Will continue heparin drip. Continue aspirin, beta kendall, ARB. Will check echocardiogram to evaluate AI, LV function. Will proceed with cardiac catheterization on Thursday for further evaluation. Code Status Full Discussed Condition With Natalie Escobedo Aug 08, 2017 18:25
[2017-08-08 21:54] LABS: APTT (PATIENT) 39.6 SEC (24.3-30.1)
[2017-08-09] VITALS (10 sets, daily range): BP systolic 103–134; BP diastolic 56–63; PULSE 87–100; RESP 20; TEMP 97.4–99.5; O2SAT 91–98
[2017-08-09] MEDS: RESP: ALBUTEROL 1.25 MG/3 ML NEB (PRN) NEB ×5 (00:58→11:44)
[2017-08-09] MEDS: SODIUM CHLOR 0.9% 1000 ML INJ 1,000 ML IV SCH ×2 (03:59→17:07)
[2017-08-09 04:59] LABS: APTT (PATIENT) 55.3 SEC (24.3-30.1)
[2017-08-09 05:04] LABS: INDIRECT BILIRUBIN 0.5 MG/DL (0.0-0.8); TOTAL BILIRUBIN ADULT 0.7 MG/DL (0.2-1.0)
[2017-08-09] MEDS: LEVOTHYROXINE SODIUM 100 MCG TAB PO SCH (06:13)
[2017-08-09] MEDS: METOPROLOL TARTRATE 25 MG TAB PO SCH ×2 (08:48→20:36)
[2017-08-09] MEDS: ASPIRIN EC 81 MG TABEC PO SCH (08:49)
[2017-08-09 13:09] LABS: APTT (PATIENT) 44.6 SEC (24.3-30.1)
[2017-08-09] MEDS: ACETAMINOPHEN 325 MG TAB PO PRN (15:02)
[2017-08-09] MEDS ORDERED: RESP: ALBUTEROL 2.5 MG/IPRATROPIUM 0.5 MG NEB (SCH) NEB (16:00)
[2017-08-09] MEDS: RESP: LEVALBUTEROL HYDROCHLORIDE 0.63 MG/3 ML NEB (PRN) NEB ×2 (16:07→20:57)
--- NOTE | 2017-08-09 16:13 | ECHRPT ---
Indication: Shortness of breath CONCLUSIONS The left ventricular systolic function is low normal with an estimated ejection fraction in the rang e of 50- 55%. Can't exclude apical hypokinesis Wall thickness is measured at the upper limits of normal. Normal left ventricular size. Mild aortic valve regurgitation. There is mild to moderate tricuspid valve regurgitation. The estimated pulmonary arterial pressure is 44.3 mmHg. small pericardial effusion BP: / HR: Rhythm: Sinus MEASUREMENTS (Male / Female) Normal Values Technical Quality:Technically difficult study 2D ECHO LV Diastolic Diameter PLAX 4.6 cm 4.2 - 5.9 / 3.9 - 5.3 cm LV Systolic Diameter PLAX 3.5 cm IVS Diastolic Thickness 1.1 cm 0.6 - 1.0 / 0.6 - 0.9 cm LVPW Diastolic Thickness 1.1 cm 0.6 - 1.0 / 0.6 - 0.9 cm LV Relative Wall Thickness 0.5 LVOT Diameter 2.0 cm M-MODE Aortic Root Diameter MM 2.3 cm LA Systolic Diameter MM 3.4 cm LA Ao Ratio MM 1.5 AV Cusp Separation MM 2.4 cm DOPPLER AV Peak Velocity 103.0 cm/s AV Peak Gradient 4.2 mmHg AI Peak Velocity 305.5 cm/s AI Peak Gradient 37.3 mmHg AI Pressure Half Time 374.5 ms LVOT Peak Velocity 82.7 cm/s LVOT Peak Gradient 2.7 mmHg AV Area Cont Eq pk 2.5 cm MR Peak Velocity 311.0 cm/s MR Peak Gradient 38.7 mmHg Mitral E Point Velocity 86.4 cm/s Mitral A Point Velocity 71.6 cm/s Mitral E to A Ratio 1.2 TR Peak Velocity 293.0 cm/s TR Peak Gradient 34.3 mmHg Right Atrial Pressure 10.0 mmHg Pulmonary Artery Systolic Pressu 44.3 mmHg Right Ventricular Systolic Press 44.3 mmHg PV Peak Velocity 96.4 cm/s PV Peak Gradient 3.7 mmHg FINDINGS LEFT VENTRICLE The left ventricular systolic function is low normal with an estimated ejection fraction in the rang e of 50- 55%. Can't exclude apical hypokinesis Wall thickness is measured at the upper limits of normal. Normal left ventricular size. RIGHT VENTRICLE Normal right ventricular size and systolic function. LEFT ATRIUM The left atrial size is normal. RIGHT ATRIUM The right atrial size is normal. ATRIAL SEPTUM Normal atrial septal thickness without atrial level shunting by limited color doppler interrogation. AORTA The aortic root and proximal ascending aorta are normal in size on limited imaging. MITRAL VALVE Structurally normal mitral valve. No mitral valve stenosis or regurgitation. AORTIC VALVE Mild aortic valve regurgitation. TRICUSPID VALVE There is mild to moderate tricuspid valve regurgitation. The estimated pulmonary arterial pressure is 44.3 mmHg. PULMONARY VALVE No pulmonary valve regurgitation or stenosis. VESSELS The inferior vena cava is normal in size. PERICARDIUM small pericardial effusion Atilio Muir MD (Electronically Signed) Final Date:09 August 2017 16:12
--- NOTE | 2017-08-09 16:28 | HHI.PR ---
Subjective Remarks Very pleasant patient, she has more of a stridor she has a history of vocal cord paralysis She has been on albuterol which I don't think it's needed in the case special that it can accelerate the heart in a patient with a non-STEMI I discussed with the nurse will switch to Xopenex only as needed every 8 hours Early no chest pain no short of breath Objective Vitals Vital Signs Date Time Temp Pulse Resp B/P (MAP) Pulse Ox O2 Delivery O2 Flow Rate FiO2 08/09/17 12:00 98.6 87 20 115/56 (75) 95 08/09/17 09:47 98 Nasal Cannula 2.00 08/09/17 08:15 Room Air 08/09/17 08:00 97.6 98 20 121/58 (79) 96 08/09/17 08:00 96 08/09/17 04:00 Nasal Cannula 3.00 08/09/17 04:00 99.5 91 20 103/59 (74) 92 08/09/17 01:02 94 Nasal Cannula 2.00 08/09/17 00:00 99.1 92 20 114/56 (75) 95 08/09/17 00:00 Nasal Cannula 3.00 08/08/17 21:12 99 Nasal Cannula 2.00 08/08/17 20:01 102 08/08/17 20:00 Nasal Cannula 3.00 08/08/17 20:00 98.6 98 20 124/60 (81) 98 I/O 08/08/17 08/08/17 08/08/17 08/09/17 08/09/17 08/09/17 07:00 15:00 23:00 07:00 15:00 23:00 Intake Total 1000 ml Balance 1000 ml Intake IV Total 1000 ml # Voids 2 # Bowel Movements 0 Result Diagram: 08/08/17 03208/08/17319 Objective Remarks GENERAL: This is a well-nourished, well-developed patient, in no apparent distress. SKIN: No rashes, warm and dry HEAD: Atraumatic. Normocephalic. EYES: Pupils equal round and reactive. Extraocular motions intact. No scleral icterus. ENT: Nose without bleeding, or drainage, Airway patent. NECK: Trachea midline. Supple CARDIOVASCULAR: Regular rate and rhythm without murmurs, gallops, or rubs. RESPIRATORY: Fair air entry bilaterally with occasional stridors. No wheezes, rales, or rhonchi. GASTROINTESTINAL: Abdomen soft, non-tender, nondistended. Positive bowel sounds MUSCULOSKELETAL: Extremities without clubbing, cyanosis, or edema. Pedal pulses appreciated NEUROLOGICAL: Awake and alert. Moves all extremity. Normal speech.no focal neurological deficit A/P Problem List: (1) NSTEMI (non-ST elevated myocardial infarction) ICD Code: I21.4 - Non-ST elevation (NSTEMI) myocardial infarction Status: Acute Assessment and Plan - NSTEMI received aspirin and started on Heparin drip. cardiac enzymes reviewed by me as well as EKG appreciate cardiology consult plan for catheter tomorrow Thursday. -Vocal cord paralysis: Occasional stridor, initially had a workup including d- dimer; low probability V/Q scan r/o PE- on Heparin drip, I will stop albuterol due to causing tachycardia will switch to Xopenex only as needed -hypertension; hold irbesartan and start on metoprolol- continue to monitor. -hypothyroidism/ vocal cord paralysis- post thyroidectomy; resume levothyroxine -DVT prophylaxis; on Heparin drip. Michael Moran MD Aug 09, 2017 16:28
--- NOTE | 2017-08-09 17:23 | PD.CARD.PN ---
Subjective Subjective Remarks Feeling better. Still SOB. Denies chest pain or needs. Objective Medications Current Medications Medications (Trade) Dose Ordered Sig/Herman Route Start Time Stop Time Status Last Admin (NS Flush) 2 ml UNSCH PRN IVF 08/08/17 03:15 08/08/17 20:03 (Heparin Inj) 5,000 units UNSCH PRN IV 08/08/17 13:00 (Heparin Inj) 2,500 units UNSCH PRN IV 08/08/17 13:00 Heparin Sodium/ Dextrose 250 ml @ 6.6 mls/hr TITRATE ONCE IV 08/08/17 07:00 08/09/17 20:52 08/08/17 07:32 (Synthroid) 100 mcg DAILY@0600 PO 08/08/17 09:00 08/09/17 06:13 (Cozaar) 50 mg DAILY PO 08/08/17 09:00 Future Hold (Ecotrin Ec) 81 mg DAILY PO 08/09/17 09:00 08/09/17 08:49 Sodium Chloride 1,000 ml @ 84 mls/hr [id number] IV 08/08/17 07:45 08/09/17 17:07 (Lopressor) 25 mg Q12HR PO 08/08/17 09:00 08/09/17 08:48 (Xopenex Neb) 0.63 mg Q8HR NEB PRN NEB 08/09/17 13:00 08/09/17 16:07 (Tylenol) 650 mg Q6H PRN PO 08/09/17 15:00 08/09/17 15:02 Vital Signs / I&O Vital Signs Date Time Temp Pulse Resp B/P (MAP) Pulse Ox O2 Delivery O2 Flow Rate FiO2 08/09/17 12:00 98.6 87 20 115/56 (75) 95 08/09/17 09:47 98 Nasal Cannula 2.00 08/09/17 08:15 Room Air 08/09/17 08:00 97.6 98 20 121/58 (79) 96 08/09/17 08:00 96 08/09/17 04:00 Nasal Cannula 3.00 08/09/17 04:00 99.5 91 20 103/59 (74) 92 08/09/17 01:02 94 Nasal Cannula 2.00 08/09/17 00:00 99.1 92 20 114/56 (75) 95 08/09/17 00:00 Nasal Cannula 3.00 08/08/17 21:12 99 Nasal Cannula 2.00 08/08/17 20:01 102 08/08/17 20:00 Nasal Cannula 3.00 08/08/17 20:00 98.6 98 20 124/60 (81) 98 I/O 08/08/17 08/08/17 08/08/17 08/09/17 08/09/17 08/09/17 07:00 15:00 23:00 07:00 15:00 23:00 Intake Total 1000 ml 1000 ml Balance 1000 ml 1000 ml Intake IV Total 1000 ml 1000 ml # Voids 2 # Bowel Movements 0 Physical Exam GENERAL: Awake, alert. No distress. SKIN: Warm and dry. HEAD: Atraumatic. Normocephalic. EYES: Pupils equal and round. No scleral icterus. No injection or drainage. ENT: No nasal bleeding or discharge. Mucous membranes pink and moist. NECK: Trachea midline. No JVD. CARDIOVASCULAR: Regular rate and rhythm. Systolic murmur over the apex. Diastolic murmur over the aortic area. RESPIRATORY: No accessory muscle use. Clear to auscultation. Breath sounds equal bilaterally. GASTROINTESTINAL: Abdomen soft, non-tender, nondistended. . MUSCULOSKELETAL: Extremities without clubbing, cyanosis, or edema. No obvious deformities. NEUROLOGICAL: Awake and alert. No obvious cranial nerve deficits. Motor grossly within normal limits. Normal speech. PSYCHIATRIC: Appropriate mood and affect; insight and judgment normal. Laboratory Laboratory Tests Test 08/08/17 21:17 08/09/17 04:23 08/09/17 12:51 Activated Partial Thromboplast Time 39.6 SEC 55.3 SEC 44.6 SEC Total Bilirubin 0.7 MG/DL Direct Bilirubin 0.2 MG/DL Indirect Bilirubin 0.5 MG/DL Aspartate Amino Transf (AST/SGOT) 35 U/L Alanine Aminotransferase (ALT/SGPT) 25 U/L Alkaline Phosphatase 59 U/L Total Protein 6.5 GM/DL Albumin 3.3 GM/DL Assessment and Plan Assessment and Plan NSTEMI Moderate to severe Aortic insufficiency Moderate mitral regurgitation Hypertension Hypothyroidism Continue heparin drip. Continue aspirin, beta kendall, ARB. Echocardiogram is pending. Will proceed with cardiac catheterization on Thursday for further evaluation. Risks/benefits/alternatives were reviewed. All questions were answered. Code Status full Discussed Condition With Dr. Nuha Corona,Natalie [employer] Aug 09, 2017 17:23
[2017-08-09] MEDS ORDERED: HEPARIN-D5W 25,000 U/250 ML 250 ML IV PRN (21:00)
[2017-08-10] VITALS (13 sets, daily range): BP systolic 98–153; BP diastolic 57–72; PULSE 79–117; RESP 16–20; TEMP 97.4–99.1; O2SAT 92–96
[2017-08-10] MEDS ORDERED: RESP: IPRATROPIUM 0.5 MG/2.5 ML NEB NEB ONE (02:00)
[2017-08-10] MEDS: SODIUM CHLOR 0.9% 1000 ML INJ 1,000 ML IV SCH ×2 (05:02→19:20)
[2017-08-10] MEDS: LEVOTHYROXINE SODIUM 100 MCG TAB PO SCH (05:02)
[2017-08-10] MEDS: RESP: LEVALBUTEROL HYDROCHLORIDE 0.63 MG/3 ML NEB (PRN) NEB (05:31)
[2017-08-10 08:19] LABS: APTT (PATIENT) 48.5 SEC (24.3-30.1)
[2017-08-10] MEDS: ASPIRIN EC 81 MG TABEC PO SCH (08:40)
[2017-08-10] MEDS: METOPROLOL TARTRATE 25 MG TAB PO SCH (08:40)
[2017-08-10] MEDS ORDERED: diphenhydrAMINE HCL 25 MG CAP PO SCH (11:15)
[2017-08-10] MEDS ORDERED: FAMOTIDINE 20 MG/2 ML VIAL IV ONE (11:15)
[2017-08-10] MEDS ORDERED: methylPREDNISolone SOD SUCC 125 MG/2 ML VIAL IV ONE (11:15)
[2017-08-10] MEDS ORDERED: RESP: ALBUTEROL 1.25 MG/3 ML NEB (PRN) ONE (11:26)
[2017-08-10] MEDS: RESP: ALBUTEROL 0.63 MG/3 ML NEB (PRN) NEB (12:31)
--- NOTE | 2017-08-10 12:34 | HHI.PR ---
Subjective Remarks Resting comfortably in bed No chest pain or short of breath going for heart catheter today Patient didn't like Xopenex yesterday I switch her back to albuterol Objective Vitals Vital Signs Date Time Temp Pulse Resp B/P (MAP) Pulse Ox O2 Delivery O2 Flow Rate FiO2 08/10/17 09:15 Nasal Cannula 08/10/17 08:31 94 Nasal Cannula 2.00 08/10/17 08:00 97.4 117 20 111/72 (85) 95 08/10/17 07:59 109 08/10/17 04:00 Nasal Cannula 3.00 08/10/17 04:00 99.1 100 20 153/72 (99) 93 08/10/17 02:09 92 Nasal Cannula 2.00 08/10/17 00:00 Nasal Cannula 3.00 08/10/17 00:00 98.4 84 20 122/61 (81) 96 08/09/17 20:57 93 Nasal Cannula 2.00 08/09/17 20:00 97.9 99 20 134/61 (85) 95 08/09/17 20:00 Nasal Cannula 3.00 08/09/17 19:58 93 08/09/17 16:02 16 08/09/17 16:00 97.4 100 20 130/63 (85) 91 I/O 08/09/17 08/09/17 08/09/17 08/10/17 08/10/17 08/10/17 07:00 15:00 23:00 07:00 15:00 23:00 Intake Total 1000 ml 1710 ml 1240 ml Output Total 600 ml Balance 1000 ml 1110 ml 1240 ml Intake Oral 460 ml 240 ml IV Total 1000 ml 1250 ml 1000 ml Output Urine Total 600 ml # Voids 3 # Bowel Movements 0 0 Result Diagram: 08/08/17 0320 08/08/17 0320 Objective Remarks GENERAL: This is a well-nourished, well-developed patient, in no apparent distress. SKIN: No rashes, warm and dry HEAD: Atraumatic. Normocephalic. EYES: Pupils equal round and reactive. Extraocular motions intact. No scleral icterus. ENT: Nose without bleeding, or drainage, Airway patent. NECK: Trachea midline. Supple CARDIOVASCULAR: Regular rate and rhythm without murmurs, gallops, or rubs. RESPIRATORY: Fair air entry bilaterally with occasional stridors. No wheezes, rales, or rhonchi. GASTROINTESTINAL: Abdomen soft, non-tender, nondistended. Positive bowel sounds MUSCULOSKELETAL: Extremities without clubbing, cyanosis, or edema. Pedal pulses appreciated NEUROLOGICAL: Awake and alert. Moves all extremity. Normal speech.no focal neurological deficit A/P Problem List: (1) NSTEMI (non-ST elevated myocardial infarction) ICD Code: I21.4 - Non-ST elevation (NSTEMI) myocardial infarction Status: Acute Assessment and Plan - NSTEMI received aspirin and started on Heparin drip. cardiac enzymes reviewed, appreciate cardiology consult plan for catheter today. -Vocal cord paralysis: Occasional stridor, initially had a workup including d- dimer; low probability V/Q scan r/o PE- on Heparin drip, I patient did not like Xopenex I explained to her albuterol may not have a big role in her treatment but she requesting to get it -hypertension; hold irbesartan and start on metoprolol- continue to monitor. -hypothyroidism/ vocal cord paralysis- post thyroidectomy; resume levothyroxine -DVT prophylaxis; on Heparin drip. Michael Moran MD Aug 10, 2017 12:34
[2017-08-10] MEDS ORDERED: IOHEXOL 350 MG/ML 100 ML BTL (for Cath Lab) OTHER ONE (14:56)
[2017-08-10] MEDS ORDERED: HEPARIN-NS/PF INJ 1,000 ML ONE (15:06)
[2017-08-10] MEDS ORDERED: SODIUM CHLORID 0.9% 500 ML INJ 500 ML ONE (15:06)
[2017-08-10] MEDS ORDERED: diphenhydrAMINE HCL 50 MG/ML VIAL ONE (15:15)
[2017-08-10] MEDS ORDERED: MIDAZOLAM HCL 2 MG/2 ML VIAL ONE (15:15)
--- NOTE | 2017-08-10 16:03 | CATHPROC ---
[employer] HIS Report Study Information Study Number Admission Scheduled Start Study Start [id number] Aug 08 2017 7:23AM 08/10/2017 Aug 10 2017 2:56PM [place] [facility] Cardiac Catheterization Admit Source Facility Department Other [facility] - Education Technician Physician and Clinical Staff Initial Kee Godwin Electric Motorman Lasha RN, Cade Clancy cathlab, cathlab Recorder Juana Armas,RT(R) Scrub Otilia Stevens,PACKING AND FINAL ASSEMBLY SUPERVISOR TECH2 Procedures Performed Procedure Location (Site) Vessel Name Angiogram LV LV Ventricle Coronary Angiograms LCA Left Coronary Coronary Angiograms RCA Right Coronary L Heart Cath Equipment Time Wood Patternmaker Apprentice Description Size Mfg Part Number Used/Scraped TRANSDUCER, TRUWAVE [id number] 14:57 ChatID * Used W/STOCKCOCK *[id number] 16:00 CARDImomondo MEDICAL VASCADE, FR5 CLOSURE SYSTEM FR 5 Used *[id number] *[id number] [id number] *[id number] [id number] *[id number] 14:57 MEDLINE INDUSTRIES PACK, CCL CUSTOM * Used *[id number] 14:57 MEDLINE PACER PEN, SKIN DUAL W/ RULER * Used *[id number] 14:57 myBestHelper WIRE, 3MMJ .035 180CM 180CM Used *[id number] PROBE COVER, STERILE [id number] 14:57 Clarabridge * Used ULTRASOUND W/ GEL *[id number] 14:57 NAMIC MANIFOLD, 4 PORT * Used *[id number] 14:57 NAMIC TUBING, HIGH PRESSURE 48" 48" Used *[id number] 14:57 NYCOMED OMNIPAQUE, 350 MG, 150ML 150ML [id number] Used 15:36 NYCOMED OMNIPAQUE, 350 MG, 50ML 50ML [id number] Used [id number] 14:57 [place] MEDICAL BLANKET,WARM AIR CCL * Used *[id number] 14:57 TERUMO MEDICAL SHEATH, FR5 TERUMO (10CM) FR 5 Used *[id number] History: Current Medications Medication Dosage/Unit Route Frequency Last Date/Time Taken Beta Candido ASA Synthroid History: Allergies Allergy Reaction iohexol Anaphylaxis diatrizoate meglumine Anaphylaxis gadoteridol Anaphylaxis gadodiamide Anaphylaxis iodixanol Anaphylaxis gadobenic acid Anaphylaxis History: Risk Factors Family History of Hypertension Dyslipidemia Previous NE Previous Heart Failure Premature CAD Yes No No No No Prior Valve Prior PCI Prior CABG Surgery No No No Cerebrovascular Peripheral Artery Chronic Lung On Dialysis Diabetes Disease Disease Disease No No No No No History: Symptoms/Diagnosis Selection Items SOB History: Stress Tests Stress or Imaging Studies Performed Yes Standard Exercise Stress Test No Stress Echo No Stress Test SPECT Yes Stress Test CMR No Cardiac CTA Coronary Calcium Score No No History: Other Disease Selection Items HTN History: Other Current Smoker No Labs Hgb (g/dl) Hct (%) WBC (l/cumm) Platelets (thousands) 11.60-17.00 35.00-51.00 4.00-11.00 150.00-450.00 13.8 41.4 9.5 251 Glucose (mg/dl) BUN (mg/dl) Creatinine (mg/dl) BUN:Creatinine (1:x) 74.00-106.00 7.00-18.00 0.50-1.30 10.00-20.00 123 17 0.7 24.3 Na (meq/l) K (meq/l) 136.00-145.00 3.50-5.10 140 3.6 INR (PTT:PT) 0.90-1.10 1 Troponin I (ng/ml) CPK-MB (ng/ML) 0.02-0.05 0.50-3.60 3.53 Not Drawn Medication Medication Total Dose (Bolus/Oral) Medication Total Dosage/Unit 1% XYLOCAINE 20 mL BENADRYL 12.5 mg Medications (Bolus/Oral) Medication Time Given Dosage/Unit Administered By Reason BENADRYL 08/10/2017 3:18:00 PM 12.5 mg Cade Colby RN 12.5 mg BENADRYL given in lab by Cade Colby RN in Right Forearm via Peripheral IV. Ordered by Kee West. 1% XYLOCAINE 08/10/2017 3:30:04 PM 20 mL Kee Phillips 20 mL 1% XYLOCAINE given in lab by Kee Phillips in Right Groin via Subcutaneous. Medication (Drip) Medication Time Given Dosage/Unit Concentration/Unit Diluent (ml) Solution IV Solutions 08/10/2017 2:56:25 PM 0 mL (IV) 500 NaCl .9 Patient arrived on IV Solutions in Right Forearm via Peripheral IV. Pump/Drip Flow = 20 ml/hr using N aCl .9. Initial Case Assessment Cardiovascular HR Rhythm NIBP Chest Pain 105 tachy 134/120 0 Edema Present Skin color Skin None Normal Warm Dry Circulatory - Right Pulses Dorsalis Pedis Femoral 2 2 Scale (0,1,2,3,4,d) Circulatory - Left Pulses Dorsalis Pedis Femoral 2 2 Scale (0,1,2,3,4,d) Neurological State Oriented to time-place- Alert Moves all extremities person Respiration - General Respiration Rate SpO2 (%) O2 (lpm) (B/min) 15 93 2 Chronological Log Time Study Chronological Log 14:56:16 Patient arrived via Bed. 14:56:17 Patient Name, D.O.B, / Armband Verified By R.N. 14:56:17 Consent signed by the physician and the patient and verified by the Education Technician staff. 14:56:18 Pre-op and post- op instructions given; patient acknowledges understanding of instructions. 14:56:18 Verbal Stimulation=2 Physical Stimulation=2 Airway=2 Respiration=2 TOTAL=8. (0=absent, 1=li mited, 2=present) 14:56:19 Presedation assessment performed by Education Technician RN. 14:56:20 Immediate Presedation assesment performed by physician. 14:56:20 Patient has been NPO for More than 6Hrs. 14:56:21 Skin Breakdown- none per pt 14:56:22 Patient Warmer Placed on the Table. 14:56:24 A # 20 IV was noted in the Forearm (right). Grade = 0 14:56:24 A # 20 IV was noted in the Forearm (right). Grade = 0 14:56:25 Patient arrived on IV Solutions in Right Forearm via Peripheral IV. Pump/Drip Flow = 20 ml/ hr using NaCl .9. 14:56:26 Gay Prominences Protected 14:56:26 History and physical on the chart or being dictated. Vitals capture started with the following parameters, Patient=Adult, Interval=5 min, Initial Pr jurzpn=839 mmHg, 15:01:36 Deflation Rate=5 mmHg, Cuff placed on Left Arm 15:02:16 ZJ=613 bpm, BPGO=715/120 mmhg, SpO2=93 %, Resp=18 B/min, Pain=0, Cristina=10, Moore=2 15:02:49 History and physical on the chart or being dictated. 15:04:15 Reference ECG taken Assessment: Initial Case, PX=794 BPM, Rhythm=tachy, JQWB=454/120 mmhg, Chest Pain=0, Edema=None , Color=Normal, Skin = Warm, Dry Right Pulses: Ramos Ped=2, Femoral=2 15:04:27 Left Pulses: Ramos Ped=2, Femoral=2 Neurological: State=Alert, Ox3, DYSON Respiration: Resp=15 B/min, SpO2=93 %, O2=2 lpm 15:07:11 IJ=066 bpm, NHGN=248/80 mmhg, SpO2=94.0 %, Resp=16 B/min, Pain=0, Cristina=10, Moore=2 15:12:14 RA=294 bpm, KZOW=398/78 mmhg, SpO2=95.0 %, Resp=37 B/min 15:16:53 Pressure channel 1 zeroed. 15:17:13 QS=172 bpm, FBWL=177/79 mmhg, SpO2=96.0 %, Resp=34 B/min 15:18:00 12.5 mg BENADRYL given in lab by Cade Colby RN in Right Forearm via Peripheral IV. Ordere d by Kee Phillips. 15:22:14 YG=274 bpm, KOBU=098/74 mmhg, SpO2=95.0 %, Resp=31 B/min 15:24:00 MD responded 15:27:11 YR=742 bpm, LGRR=667/89 mmhg, SpO2=96.0 %, Resp=24 B/min Time Out. Correct patient, correct procedure, correct physician, power injector loaded, or not loaded with contrast with 15:29:32 surgical team present. Time Out Concurred by MD and individual staff in procedure. 15:30:00 Case Start 15:30:04 20 mL 1% XYLOCAINE given in lab by Kee Phillips in Right Groin via Subcutaneous. 15:32:12 QP=014 bpm, NJJA=795/78 mmhg, SpO2=95.0 %, Resp=36 B/min 15:32:36 Access site was Right Femoral Artery. 15:32:50 A SHEATH, FR5 TERUMO (10CM) FR 5 was advanced into the Fem Art (right) using the Percutaneo us technique. A PIGTAIL ANG. INFINITI CATHETER FR 5 was advanced over a wire. OMNIPAQUE, 350 MG, 150ML 150ML was used 15:33:18 for injections. Recorded Pressure: LV, QM=409, Condition=Condition 1 15:35:02 (Left Ventricle) LV 152/17/30 15:35:23 The LV was injected at 10 cc/sec for a total of 30. OMNIPAQUE, 350 MG, 50ML 50ML used. Recorded Pressure: LV, Ao, DR=753, Condition=Condition 1 15:37:09 (Left Ventricle) LV 156/21/33, (Aorta) Ao 160/78/118 15:37:15 XA=468 bpm, EYQY=360/75 mmhg, SpO2=94.0 %, Resp=39 B/min 15:37:34 Catheter was removed A JL 4.0 INFINITI CATHETER FR 5 was advanced over a wire. OMNIPAQUE, 350 MG, 150ML 150ML was us ed for 15:37:35 injections. 15:38:32 The LCA was injected and visualized at various angles. OMNIPAQUE, 350 MG, 150ML 150ML used . Recorded Pressure: Ao, OQ=959, Condition=Condition 1 15:38:47 (Aorta) Ao 145/74/106 15:40:51 Catheter was removed A AR MOD INFINITI CATHETER FR 5 was advanced over a wire. OMNIPAQUE, 350 MG, 150ML 150ML was us ed for 15:41:05 injections. 15:42:18 GU=105 bpm, HFSA=895/66 mmhg, SpO2=95.0 %, Resp=41 B/min 15:42:30 The RCA was injected and visualized at various angles. OMNIPAQUE, 350 MG, 150ML 150ML used . 15:43:14 Catheter was removed 15:43:18 Case End 15:45:10 An injection in the Fem Art (right) was made through the SHEATH, FR5 TERUMO (10CM) FR 5. 15:47:15 HR=99 bpm, OLOF=591/67 mmhg, SpO2=94.0 %, Resp=44 B/min 15:50:00 VASCADE, FR5 CLOSURE SYSTEM FR 5 placement in the Fem Art (right) 15:52:14 HR=98 bpm, MPHP=334/71 mmhg, SpO2=95.0 %, Resp=44 B/min 15:57:16 BG=596 bpm, MXSW=134/71 mmhg, SpO2=96.0 %, Resp=22 B/min 15:57:21 Vitals capture stopped. 15:59:56 Sterile dressing applied to site 15:59:59 No case complications noted. 16:00:00 Cine recording checked. 16:00:01 Bedside Report will be given. 16:00:04 Contrast Scanned 16:00:05 A Left Heart Cath was performed. 16:00:07 Patient moved to [facility] End Study - Contrast Media Used In Study Contrast Total Opened (mL) Total Used (mL) Total Wasted (mL) Omnipaque 70 70 0 End Study - Maximum Contrast Load Max Contrast Load (mL) 393.5 End Study - Radiation Exposure Fluoro Time (minutes) 2.2 End Study - Patient Disposition Complications Transferred To Interventional Outcome No Telemetry Bed No attempt made
[2017-08-10] MEDS: CARVEDILOL 6.25 MG TAB PO SCH (21:32)
[2017-08-11] VITALS (29 sets, daily range): BP systolic 98–153; BP diastolic 50–67; PULSE 74–110; RESP 17–20; TEMP 97.8–99; O2SAT 91–96
[2017-08-11] MEDS: RESP: ALBUTEROL 0.63 MG/3 ML NEB (PRN) NEB ×2 (04:06→13:39)
[2017-08-11 05:15] LABS: APTT (PATIENT) 31.5 SEC (24.3-30.1)
[2017-08-11 05:39] LABS: HDL CHOLESTEROL 71.3 MG/DL (40.0-60.0)
[2017-08-11] MEDS: LEVOTHYROXINE SODIUM 100 MCG TAB PO SCH (06:01)
[2017-08-11] MEDS: LOSARTAN 25 MG TAB PO SCH (10:22)
[2017-08-11] MEDS: CARVEDILOL 6.25 MG TAB PO SCH ×2 (10:23→21:38)
[2017-08-11] MEDS: ASPIRIN EC 81 MG TABEC PO SCH (10:23)
--- NOTE | 2017-08-11 11:22 | MA ---
cc: KEE PHILLIPS DATE: 08/10/2017 INDICATIONS 1. Tbp-QB-cvvxzapvq myocardial infarction. 2. Class III angina. 3. Congestive heart failure, class III. PROCEDURE PERFORMED 1. Retrograde left heart catheterization with left ventricular and selective coronary angiography. 2. Moderate sedation. ACCESS SITE Right femoral artery. EQUIPMENT USED 5 Swedish pigtail catheter. 5 Swedish JL4 and AR modified coronary artery catheters. MEDICATIONS Benadryl IV. CONTRAST Omnipaque 70 cc. COMPLICATIONS None. ESTIMATED BLOOD LOSS Less than 10 cc. METHOD OF HEMOSTASIS Vascade closure. RESULTS HEMODYNAMICS Heart rate 99 beats per minute. Left end-diastolic pressure 21 mmHg. Left ventricle 150/21. Aorta 166/74-106. LEFT VENTRICULOGRAPHY Ejection fraction 30%. Wall motion anteroapical, apical and inferoapical akinesis. No mitral regurgitation. CORONARY ANGIOGRAPHY The left main coronary artery is patent. The left anterior descending artery is a large vessel which wraps around the apex and supplies a significant portion of the inferior wall. The LAD is patent. D1 patent. D2 patent. The left circumflex artery is patent. High OM1 patent. OM2 patent. The right coronary artery is a dominant vessel which is patent. PLV patent. Small PDA patent. DIAGNOSIS 1. Widely patent coronary ateries. 2. Moderate to severe left ventricular dysfunction. DISPOSITION Ms. Rachel was found to have evidence of patent coronary arteries. Her left ventricular function is decreased to a moderate to severe degree with an ejection fraction of 30% and anteroapical, apical and inferoapical akinesis. This is consistent with Takotsubo cardiomyopathy. Will initiate therapy for congestive heart failure. Ms. Rachel will follow-up with Dr. Orourke in his office after discharge. Kee Phillips MD ORadames/SEBLE /3:56 PM /11:01 AM
--- NOTE | 2017-08-11 13:54 | HHI.PR ---
Subjective Remarks Patient sitting on the edge of the bed, she is always happy and smiling Still complaining of short of breath, she is nervous and anxious about her vocal cords and that's why she keep asking for breathing treatment I discussed with her in earlier with Dr. medina the superintendent schools we both don' t think she needs to breathing treatment, he recommended to consult Dr. strauss for further recommendation Patient had heart catheter showed ejection fraction 30-35% nonischemic most likely Takotsubo syndrome Objective Vitals Vital Signs Date Time Temp Pulse Resp B/P (MAP) Pulse Ox O2 Delivery O2 Flow Rate FiO2 08/11/17 11:50 98 08/11/17 11:50 98.5 98 18 138/67 (90) 92 08/11/17 11:50 92 Room Air 08/11/17 07:30 93 Room Air 08/11/17 07:30 83 08/11/17 07:30 98.1 83 18 127/60 (82) 93 08/11/17 06:12 90 08/11/17 05:19 83 08/11/17 04:14 85 08/11/17 03:20 85 08/11/17 03:20 96 Nasal Cannula 1.00 08/11/17 03:20 97.8 87 17 98/50 (66) 96 08/11/17 02:09 74 08/11/17 01:39 79 08/11/17 00:07 74 08/10/17 23:36 97.6 86 16 98/57 (71) 96 08/10/17 23:36 96 Nasal Cannula 2.00 08/10/17 23:36 79 08/10/17 22:00 80 08/10/17 21:00 90 08/10/17 20:00 94 08/10/17 19:30 93 Nasal Cannula 2.00 08/10/17 19:30 94 08/10/17 19:30 97.5 95 17 130/60 (83) 93 08/10/17 18:45 98.4 96 16 131/60 (83) 95 08/10/17 16:09 94 Nasal Cannula 2.00 I/O 08/10/17 08/10/17 08/10/17 08/11/17 08/11/17 08/11/17 07:00 15:00 23:00 07:00 15:00 23:00 Intake Total 1240 ml 240 ml Output Total 150 ml Balance 1240 ml 90 ml Intake Oral 240 ml 240 ml IV Total 1000 ml Output Urine Total 150 ml # Voids 3 1 # Bowel Movements 0 Result Diagram: 08/08/1731908/08/17319 Objective Remarks GENERAL: This is a well-nourished, well-developed patient, in no apparent distress. SKIN: No rashes, warm and dry HEAD: Atraumatic. Normocephalic. EYES: Pupils equal round and reactive. Extraocular motions intact. No scleral icterus. ENT: Nose without bleeding, or drainage, Airway patent. NECK: Trachea midline. Supple CARDIOVASCULAR: Regular rate and rhythm without murmurs, gallops, or rubs. RESPIRATORY: Fair air entry bilaterally with occasional stridors. No wheezes, rales, or rhonchi. GASTROINTESTINAL: Abdomen soft, non-tender, nondistended. Positive bowel sounds MUSCULOSKELETAL: Extremities without clubbing, cyanosis, or edema. Pedal pulses appreciated NEUROLOGICAL: Awake and alert. Moves all extremity. Normal speech.no focal neurological deficit A/P Problem List: (1) NSTEMI (non-ST elevated myocardial infarction) ICD Code: I21.4 - Non-ST elevation (NSTEMI) myocardial infarction Status: Acute Assessment and Plan - Severe Nonischemic cardiomyopathy EF 30-35% Takotsubo cardiomyopathy received aspirin and started on Heparin drip. cardiac enzymes reviewed, appreciate cardiology consult status post heart catheter, coronary artery patent , EF 30-35% concerning [place] D/W quadrant -Vocal cord paralysis: Occasional stridor, initially had a workup including d- dimer; low probability V/Q scan r/o PE- on Heparin drip, DC albuterol consult pulmonary -hypertension; hold irbesartan and start on metoprolol- continue to monitor. -hypothyroidism/ vocal cord paralysis- post thyroidectomy; resume levothyroxine -DVT prophylaxis; on Heparin drip. Michael Moran MD Aug 11, 2017 13:54
--- NOTE | 2017-08-11 14:30 | PD.CARD.PN ---
Subjective Subjective Remarks Still c/o SOB, likely related to vocal cord paralysis; no CP Objective Medications Current Medications Medications (Trade) Dose Ordered Sig/Herman Route Start Time Stop Time Status Last Admin (NS Flush) 2 ml UNSCH PRN IVF 08/08/17 03:15 08/08/17 20:03 (Synthroid) 100 mcg DAILY@0600 PO 08/08/17 09:00 08/11/17 06:01 (Ecotrin Ec) 81 mg DAILY PO 08/09/17 09:00 08/11/17 10:23 Sodium Chloride 1,000 ml @ 84 mls/hr [id number] IV 08/08/17 07:45 08/10/17 05:02 (Tylenol) 650 mg Q6H PRN PO 08/09/17 15:00 08/09/17 15:02 (Cozaar) 25 mg DAILY PO 08/11/17 09:00 08/11/17 10:22 (Coreg) 6.25 mg Q12HR PO 08/10/17 21:00 08/11/17 10:23 Vital Signs / I&O Vital Signs Date Time Temp Pulse Resp B/P (MAP) Pulse Ox O2 Delivery O2 Flow Rate FiO2 08/11/17 11:50 98 08/11/17 11:50 98.5 98 18 138/67 (90) 92 08/11/17 11:50 92 Room Air 08/11/17 07:30 93 Room Air 08/11/17 07:30 83 08/11/17 07:30 98.1 83 18 127/60 (82) 93 08/11/17 06:12 90 08/11/17 05:19 83 08/11/17 04:14 85 08/11/17 03:20 85 08/11/17 03:20 96 Nasal Cannula 1.00 08/11/17 03:20 97.8 87 17 98/50 (66) 96 08/11/17 02:09 74 08/11/17 01:39 79 08/11/17 00:07 74 08/10/17 23:36 97.6 86 16 98/57 (71) 96 08/10/17 23:36 96 Nasal Cannula 2.00 08/10/17 23:36 79 08/10/17 22:00 80 08/10/17 21:00 90 08/10/17 20:00 94 08/10/17 19:30 93 Nasal Cannula 2.00 08/10/17 19:30 94 08/10/17 19:30 97.5 95 17 130/60 (83) 93 08/10/17 18:45 98.4 96 16 131/60 (83) 95 08/10/17 16:09 94 Nasal Cannula 2.00 I/O 08/10/17 08/10/17 08/10/17 08/11/17 08/11/17 08/11/17 07:00 15:00 23:00 07:00 15:00 23:00 Intake Total 1240 ml 240 ml Output Total 150 ml Balance 1240 ml 90 ml Intake Oral 240 ml 240 ml IV Total 1000 ml Output Urine Total 150 ml # Voids 3 1 # Bowel Movements 0 Physical Exam GENERAL: In mild respiratory distress SKIN: Warm and dry. HEAD: Normocephalic. EYES: No scleral icterus. No injection or drainage. NECK: Supple, trachea midline. No JVD or lymphadenopathy. CARDIOVASCULAR: Regular rate and rhythm without murmurs, gallops, or rubs. RESPIRATORY: Breath sounds equal bilaterally. No accessory muscle use. Stridor present. GASTROINTESTINAL: Abdomen soft, non-tender, nondistended. MUSCULOSKELETAL: No cyanosis, trace edema. Laboratory Laboratory Tests Test 08/11/17 04:40 Activated Partial Thromboplast Time 31.5 SEC Triglycerides Level 65 MG/DL Cholesterol Level 155 MG/DL LDL Cholesterol 71 MG/DL HDL Cholesterol 71.3 MG/DL Cholesterol/HDL Ratio 2.17 RATIO Assessment and Plan Problem List: (1) NSTEMI (non-ST elevated myocardial infarction) ICD Codes: I21.4 - Non-ST elevation (NSTEMI) myocardial infarction Status: Acute (2) Takotsubo cardiomyopathy ICD Codes: I51.81 - Takotsubo syndrome (3) Vocal cord paralysis ICD Codes: J38.00 - Paralysis of vocal cords and larynx, unspecified (4) SOB (shortness of breath) ICD Codes: R06.02 - Shortness of breath Status: Acute (5) CHF (congestive heart failure) ICD Codes: I50.9 - Heart failure, unspecified Assessment and Plan Cath with patent coronaries and moderate to severe LV dysfunction c/w Tako Tsubo cardiomyopathy. Continue and titrate tx for CHF. Pulmonary evaluation. Increase activity. F/u w Dr. Orourke after discharge. Kee Phillips MD Aug 11, 2017 14:30
--- NOTE | 2017-08-11 20:30 | MB ---
cc: JAYLENE MIRANDA DATE OF CONSULTATION 08/11/[address] Phillips REASON FOR CONSULTATION Evaluate for shortness of breath and vocal cord paralysis. HISTORY OF THE PRESENT ILLNESS Ms. Rachel is a pleasant 77-year-old female with history of thyroid surgery 2-1/2 years ago and she has vocal cord paralysis. The patient has off-and-on shortness of breath whenever she has some secretions in her throat that makes her breathing worse. She gets breathing treatment which makes her better. She also has history of aortic insufficiency. She came to the hospital with difficulty breathing. Her initial troponin was high and she was found to have NSTEMI. Her V/Q scan low probability and her chest x-ray shows no acute infiltrate. The patient is up, around and walking. Has mild shortness of breath and mild wheezing in the throat area. Her CBC shows WBC 9.5, hemoglobin 13.8, hematocrit 41.4, MCV 95, platelet count 251. Sodium 140, potassium 3.6, chloride 107, CO2 28, BUN 17 creatinine 0.70. PAST MEDICAL HISTORY Significant for: 1. A history of thyroidectomy complicated with vocal cord paralysis. 2. Hypertension. 3. Hypothyroidism. 4. Appendectomy. 5. Thyroidectomy. 6. History of aortic stenosis. MEDICATIONS She is currently takin. Losartan 25 milligrams daily. 2. Coreg 6.25 milligrams q.12h. 3. Aspirin 81 milligrams daily. 4. Levothyroxine 100 micrograms daily. ALLERGIES SHE IS ALLERGIC TO DIATRIZOATE, GADOBENIC ACID, IODIXANOL. SOCIAL HISTORY She is . She is a homemaker. No history of smoking or alcohol. FAMILY HISTORY She has four children. REVIEW OF SYSTEMS She is normally up, around and active. Sometimes she has coughing spells when she eats or whenever she has mucus in the throat. Has no seizure, stroke or epilepsy. No deep venous thrombosis or pulmonary embolism. PHYSICAL EXAMINATION GENERAL: Pleasant, elderly female not in any acute distress. VITAL SIGNS: Blood pressure 126/70, heart rate 97, respiratory rate 20, temperature 98.6. HEENT: Pupils are equal and reactive to light. Oral mucosa, nasal mucosa normal. NECK: Supple. JVP not raised. CHEST: Air entry equal bilaterally. She has rhonchi more so in the neck. CARDIOVASCULAR: S1, S2 normal. ABDOMEN: Benign. EXTREMITIES: No odema. IMPRESSION 1. Shortness of breath secondary to vocal cord paralysis. Her breathing gets worse with secretions and sometimes with coughing. 2. Hypertension. 3. Aortic stenosis. PLAN I will give her racemic epinephrine treatment and see the response. I will also give her Decadron 4 milligrams q.6h. Use aerosol treatment as needed. Supplement oxygen as needed. Once she gets better we will check her pulmonary function tests. Further treatment will depend on the course in the hospital. Thank you Dr. Phillips for this consultation. MD FEI Arce/NERY /6:54 PM /8:01 PM MTDD
[2017-08-11] MEDS: DEXAMETHASONE SOD PHOS 4 MG/ML VIAL IV PUSH SCH (21:39)
[2017-08-11] MEDS: RESP: RACEPINEPHRINE 2.25% 0.5 ML NEB NEB SCH (21:55)
[2017-08-11] MEDS: ACETAMINOPHEN 325 MG TAB PO PRN (22:48)
[2017-08-12] VITALS (20 sets, daily range): BP systolic 100–152; BP diastolic 53–72; PULSE 62–107; RESP 16–19; TEMP 97.4–98.3; O2SAT 91–99
[2017-08-12] MEDS: DEXAMETHASONE SOD PHOS 4 MG/ML VIAL IV PUSH SCH ×4 (03:28→21:10)
[2017-08-12] MEDS: RESP: RACEPINEPHRINE 2.25% 0.5 ML NEB NEB SCH ×4 (03:58→21:33)
[2017-08-12] MEDS: LEVOTHYROXINE SODIUM 100 MCG TAB PO SCH (06:08)
[2017-08-12] MEDS: SODIUM CHLOR 0.9% 1000 ML INJ 1,000 ML IV SCH ×2 (07:05→21:10)
[2017-08-12 07:18] LABS: BICARBONATE 25.7 MEQ/L (21.0-32.0)
[2017-08-12 07:35] LABS: AUTOMATED NEUTROPHIL # 10.5 TH/MM3 (1.8-7.7); BASOPHIL % 0.2 % (0.0-2.0); HEMATOCRIT 34.1 % (35.0-46.0); LYMPH % 7.1 % (9.0-44.0); LYMPHOCYTE # 0.8 TH/MM3 (1.0-4.8); MEAN CELL VOLUME 95.1 FL (80.0-100.0); MEAN CORPUSCULAR HEMOGLOBIN 32.3 PG (27.0-34.0); MONO % 2.2 % (0.0-8.0); NEUT % 90.5 % (16.0-70.0); PLATELET COUNT 212 TH/MM3 (150-450); RED BLOOD COUNT 3.58 MIL/MM3 (4.00-5.30); RED CELL DISTRIBUTION WIDTH 13.2 % (11.6-17.2); WHITE BLOOD COUNT 11.6 TH/MM3 (4.0-11.0)
[2017-08-12 07:59] LABS: HEMO FLAGS AUTO DIFF
[2017-08-12] MEDS: LOSARTAN 25 MG TAB PO SCH (08:54)
[2017-08-12] MEDS: CARVEDILOL 6.25 MG TAB PO SCH ×2 (08:55→21:09)
[2017-08-12] MEDS: ASPIRIN EC 81 MG TABEC PO SCH (08:55)
[2017-08-12 10:47] LABS: PLATELET ESTIMATE SMEAR NORMAL (NORMAL); PLATELET MORPHOLOGY NORMAL (NORMAL); SCAN/DIFF AUTO DIFF CONFIRMED
[2017-08-12] MEDS ORDERED: CARV6.25 PO (18:07)
[2017-08-12] MEDS ORDERED: COZA25TA PO (18:07)
--- NOTE | 2017-08-12 18:35 | HHI.PR ---
Subjective Remarks Patient sitting on the chair eating her dinner she requested to have a shower Seen by pulmonology , continue titrating cardiomyopathy medication by cardiology Objective Vitals Vital Signs Date Time Temp Pulse Resp B/P (MAP) Pulse Ox O2 Delivery O2 Flow Rate FiO2 08/12/17 16:14 Room Air 08/12/17 15:16 94 21 08/12/17 12:00 76 08/12/17 11:47 93 Room Air 08/12/17 11:47 97.4 94 16 137/65 (89) 93 08/12/17 11:00 95 08/12/17 10:33 99 08/12/17 10:00 83 08/12/17 09:00 81 08/12/17 08:00 72 08/12/17 07:20 91 Room Air 08/12/17 07:20 98.1 95 16 152/72 (98) 91 08/12/17 07:00 81 08/12/17 06:14 107 08/12/17 05:03 71 08/12/17 04:13 85 08/12/17 03:35 81 08/12/17 03:35 98.3 77 19 100/53 (69) 95 08/12/17 03:35 95 Nasal Cannula 2.00 08/12/17 02:18 74 08/12/17 01:12 86 08/12/17 00:00 88 08/11/17 23:40 99.0 97 19 137/65 (89) 92 08/11/17 23:40 92 Nasal Cannula 2.50 08/11/17 23:00 92 08/11/17 22:00 100 08/11/17 21:00 110 08/11/17 20:42 95 2.00 08/11/17 20:00 109 08/11/17 19:50 106 08/11/17 19:50 98.7 108 18 153/64 (93) 94 08/11/17 19:50 94 Nasal Cannula 2.00 I/O 08/11/17 08/11/17 08/11/17 08/12/17 08/12/17 08/12/17 07:00 15:00 23:00 07:00 15:00 23:00 Intake Total 240 ml 750 ml 570 ml Output Total 150 ml 675 ml 350 ml Balance 90 ml 75 ml 220 ml Intake Oral 240 ml 750 ml 570 ml Output Urine Total 150 ml 675 ml 350 ml # Voids 1 1 # Bowel Movements 0 Result Diagram: 08/12/1760008/12/17600 Objective Remarks GENERAL: This is a well-nourished, well-developed patient, in no apparent distress. SKIN: No rashes, warm and dry HEAD: Atraumatic. Normocephalic. EYES: Pupils equal round and reactive. Extraocular motions intact. No scleral icterus. ENT: Nose without bleeding, or drainage, Airway patent. NECK: Trachea midline. Supple CARDIOVASCULAR: Regular rate and rhythm without murmurs, gallops, or rubs. RESPIRATORY: Fair air entry bilaterally with occasional stridors. No wheezes, rales, or rhonchi. GASTROINTESTINAL: Abdomen soft, non-tender, nondistended. Positive bowel sounds MUSCULOSKELETAL: Extremities without clubbing, cyanosis, or edema. Pedal pulses appreciated NEUROLOGICAL: Awake and alert. Moves all extremity. Normal speech.no focal neurological deficit A/P Problem List: (1) NSTEMI (non-ST elevated myocardial infarction) ICD Code: I21.4 - Non-ST elevation (NSTEMI) myocardial infarction Status: Acute Assessment and Plan - Severe Nonischemic cardiomyopathy EF 30-35% Takotsubo cardiomyopathy received aspirin and started on Heparin drip. cardiac enzymes reviewed, appreciate cardiology consult status post heart catheter, coronary artery patent , EF 30-35% concerning [place] D/W quadrant -Vocal cord paralysis: Occasional stridor, initially had a workup including d- dimer; low probability V/Q scan r/o PE- on Heparin drip, DC albuterol consult pulmonary -hypertension; hold irbesartan and start on metoprolol- continue to monitor. -hypothyroidism/ vocal cord paralysis- post thyroidectomy; resume levothyroxine -DVT prophylaxis; on Heparin drip. 08/12: Appreciate pulmonary consultation, continue titrating meds follow cardiology Discharge Planning When cleared by cardiology Michael Moran MD Aug 12, 2017 18:35
--- NOTE | 2017-08-12 19:16 | HHI.PR ---
Subjective Remarks 77 YOWF with VC paralysis, HTN, Breathing better Occ cough Wheezing improved at BS Objective Vital Signs Vital Signs Date Time Temp Pulse Resp B/P (MAP) Pulse Ox O2 Delivery O2 Flow Rate FiO2 08/12/17 16:14 Room Air 08/12/17 15:16 94 21 08/12/17 15:00 98.3 62 18 135/59 (84) 95 08/12/17 12:00 76 08/12/17 11:47 93 Room Air 08/12/17 11:47 97.4 94 16 137/65 (89) 93 08/12/17 11:00 95 08/12/17 10:33 99 08/12/17 10:00 83 08/12/17 09:00 81 08/12/17 08:00 72 08/12/17 07:20 91 Room Air 08/12/17 07:20 98.1 95 16 152/72 (98) 91 08/12/17 07:00 81 08/12/17 06:14 107 08/12/17 05:03 71 08/12/17 04:13 85 08/12/17 03:35 81 08/12/17 03:35 98.3 77 19 100/53 (69) 95 08/12/17 03:35 95 Nasal Cannula 2.00 08/12/17 02:18 74 08/12/17 01:12 86 08/12/17 00:00 88 08/11/17 23:40 99.0 97 19 137/65 (89) 92 08/11/17 23:40 92 Nasal Cannula 2.50 08/11/17 23:00 92 08/11/17 22:00 100 08/11/17 21:00 110 08/11/17 20:42 95 2.00 08/11/17 20:00 109 08/11/17 19:50 106 08/11/17 19:50 98.7 108 18 153/64 (93) 94 08/11/17 19:50 94 Nasal Cannula 2.00 I/O 08/11/17 08/11/17 08/11/17 08/12/17 08/12/17 08/12/17 07:00 15:00 23:00 07:00 15:00 23:00 Intake Total 240 ml 750 ml 570 ml 360 ml Output Total 150 ml 675 ml 350 ml Balance 90 ml 75 ml 220 ml 360 ml Intake Oral 240 ml 750 ml 570 ml 360 ml Output Urine Total 150 ml 675 ml 350 ml # Voids 1 1 1 # Bowel Movements 0 Result Diagram: 08/12/1760008/12/17600 Objective Remarks GENERAL: Thin built female, NAD SKIN: Warm and dry. HEAD: Normocephalic. EYES: No scleral icterus. No injection or drainage. NECK: Supple, trachea midline. No JVD or lymphadenopathy. CARDIOVASCULAR: Regular rate and rhythm without murmurs, gallops, or rubs. RESPIRATORY: Breath sounds equal bilaterally. No accessory muscle use. GASTROINTESTINAL: Abdomen soft, non-tender, nondistended. MUSCULOSKELETAL: No cyanosis, or edema. BACK: Nontender without obvious deformity. No CVA tenderness. A/P Assessment and Plan Dysnoea and wheezing much improved VC Paralysis HTN PLAN: Change to PO Decadron Aerosol nebs Stable on RA DC plans for home Mina Gao MD Aug 12, 2017 19:16
--- NOTE | 2017-08-12 19:19 | PD.CARD.PN ---
Subjective Subjective Remarks Feels much better; no CP or excessive dyspnea Objective Medications Current Medications Medications (Trade) Dose Ordered Sig/Herman Route Start Time Stop Time Status Last Admin (NS Flush) 2 ml UNSCH PRN IVF 08/08/17 03:15 08/08/17 20:03 (Synthroid) 100 mcg DAILY@0600 PO 08/08/17 09:00 08/12/17 06:08 (Ecotrin Ec) 81 mg DAILY PO 08/09/17 09:00 08/12/17 08:55 Sodium Chloride 1,000 ml @ 84 mls/hr [id number] IV 08/08/17 07:45 08/10/17 05:02 (Tylenol) 650 mg Q6H PRN PO 08/09/17 15:00 08/11/17 22:48 (Cozaar) 25 mg DAILY PO 08/11/17 09:00 08/12/17 08:54 (Coreg) 6.25 mg Q12HR PO 08/10/17 21:00 08/12/17 08:55 (Decadron Inj) 4 mg Q6H IV PUSH 08/11/17 21:00 08/12/17 15:25 (Racepinephrine 2.25% Neb) 0.5 ml Q6HR NEB NEB 08/11/17 20:30 08/12/17 15:16 Vital Signs / I&O Vital Signs Date Time Temp Pulse Resp B/P (MAP) Pulse Ox O2 Delivery O2 Flow Rate FiO2 08/12/17 16:14 Room Air 08/12/17 15:16 94 21 08/12/17 15:00 98.3 62 18 135/59 (84) 95 08/12/17 12:00 76 08/12/17 11:47 93 Room Air 08/12/17 11:47 97.4 94 16 137/65 (89) 93 08/12/17 11:00 95 08/12/17 10:33 99 08/12/17 10:00 83 08/12/17 09:00 81 08/12/17 08:00 72 08/12/17 07:20 91 Room Air 08/12/17 07:20 98.1 95 16 152/72 (98) 91 08/12/17 07:00 81 08/12/17 06:14 107 08/12/17 05:03 71 08/12/17 04:13 85 08/12/17 03:35 81 08/12/17 03:35 98.3 77 19 100/53 (69) 95 08/12/17 03:35 95 Nasal Cannula 2.00 08/12/17 02:18 74 08/12/17 01:12 86 08/12/17 00:00 88 08/11/17 23:40 99.0 97 19 137/65 (89) 92 08/11/17 23:40 92 Nasal Cannula 2.50 08/11/17 23:00 92 08/11/17 22:00 100 08/11/17 21:00 110 08/11/17 20:42 95 2.00 08/11/17 20:00 109 08/11/17 19:50 106 08/11/17 19:50 98.7 108 18 153/64 (93) 94 08/11/17 19:50 94 Nasal Cannula 2.00 I/O 08/11/17 08/11/17 08/11/17 08/12/17 08/12/17 08/12/17 07:00 15:00 23:00 07:00 15:00 23:00 Intake Total 240 ml 750 ml 570 ml 360 ml Output Total 150 ml 675 ml 350 ml Balance 90 ml 75 ml 220 ml 360 ml Intake Oral 240 ml 750 ml 570 ml 360 ml Output Urine Total 150 ml 675 ml 350 ml # Voids 1 1 1 # Bowel Movements 0 Physical Exam GENERAL: In NAD SKIN: Warm and dry. HEAD: Normocephalic. EYES: No scleral icterus. No injection or drainage. NECK: Supple, trachea midline. No JVD or lymphadenopathy. CARDIOVASCULAR: Regular rate and rhythm without murmurs, gallops, or rubs. RESPIRATORY: Breath sounds equal bilaterally. No accessory muscle use. Stridor present. GASTROINTESTINAL: Abdomen soft, non-tender, nondistended. MUSCULOSKELETAL: No cyanosis, trace edema. Laboratory Laboratory Tests Test 08/12/17 06:01 White Blood Count 11.6 TH/MM3 Red Blood Count 3.58 MIL/MM3 Hemoglobin 11.6 GM/DL Hematocrit 34.1 % Mean Corpuscular Volume 95.1 FL Mean Corpuscular Hemoglobin 32.3 PG Mean Corpuscular Hemoglobin Concent 34.0 % Red Cell Distribution Width 13.2 % Platelet Count 212 TH/MM3 Mean Platelet Volume 9.5 FL Neutrophils (%) (Auto) 90.5 % Lymphocytes (%) (Auto) 7.1 % Monocytes (%) (Auto) 2.2 % Eosinophils (%) (Auto) 0.0 % Basophils (%) (Auto) 0.2 % Neutrophils # (Auto) 10.5 TH/MM3 Lymphocytes # (Auto) 0.8 TH/MM3 Monocytes # (Auto) 0.3 TH/MM3 Eosinophils # (Auto) 0.0 TH/MM3 Basophils # (Auto) 0.0 TH/MM3 CBC Comment AUTO DIFF Differential Comment AUTO DIFF CONFIRMED Platelet Estimate NORMAL Platelet Morphology Comment NORMAL Blood Urea Nitrogen 26 MG/DL Creatinine 0.52 MG/DL Random Glucose 145 MG/DL Calcium Level 8.2 MG/DL Sodium Level 143 MEQ/L Potassium Level 4.0 MEQ/L Chloride Level 111 MEQ/L Carbon Dioxide Level 25.7 MEQ/L Anion Gap 6 MEQ/L Estimat Glomerular Filtration Rate 114 ML/MIN Assessment and Plan Problem List: (1) NSTEMI (non-ST elevated myocardial infarction) ICD Codes: I21.4 - Non-ST elevation (NSTEMI) myocardial infarction Status: Acute (2) Takotsubo cardiomyopathy ICD Codes: I51.81 - Takotsubo syndrome (3) Vocal cord paralysis ICD Codes: J38.00 - Paralysis of vocal cords and larynx, unspecified (4) SOB (shortness of breath) ICD Codes: R06.02 - Shortness of breath Status: Acute (5) CHF (congestive heart failure) ICD Codes: I50.9 - Heart failure, unspecified Assessment and Plan No angina or CHF symptoms. Cath with patent coronaries and moderate to severe LV dysfunction c/w Tako Tsubo cardiomyopathy. Continue and titrate tx for CHF. Pulmonary evaluation by Dr. Gao; will follow as outpatient. D/C home. F/u w Dr. Orourke after discharge. Kee Phillips MD Aug 12, 2017 19:19
[2017-08-13] VITALS: BP 106/57; PULSE 74; RESP 18; TEMP 98.5; O2SAT 93
[2017-08-13] MEDS: RESP: RACEPINEPHRINE 2.25% 0.5 ML NEB NEB SCH ×2 (03:21→08:51)
[2017-08-13] MEDS: DEXAMETHASONE SOD PHOS 4 MG/ML VIAL IV PUSH SCH (03:37)
[2017-08-13 04:00] VITALS: BP 129/62; PULSE 80; RESP 18; TEMP 97.9; O2SAT 96
[2017-08-13] MEDS: SODIUM CHLOR 0.9% 1000 ML INJ 1,000 ML IV SCH (05:37)
[2017-08-13] MEDS: LEVOTHYROXINE SODIUM 100 MCG TAB PO SCH (05:37)
[2017-08-13 07:00] VITALS: BP 145/73; PULSE 76; PULSE 93; RESP 18; TEMP 97.4; O2SAT 94
[2017-08-13 08:00] VITALS: PULSE 77
--- NOTE | 2017-08-13 08:24 | HHI.PR ---
Subjective Remarks 77 YOWF with VC paralysis, HTN, Breathing better Occ cough Wheezing improved Objective Vital Signs Vital Signs Date Time Temp Pulse Resp B/P (MAP) Pulse Ox O2 Delivery O2 Flow Rate FiO2 08/13/17 07:00 76 08/13/17 07:00 97.4 93 18 145/73 (97) 94 08/13/17 04:00 97.9 80 18 129/62 (84) 96 08/13/17 00:00 98.5 74 18 106/57 (73) 93 08/12/17 22:22 73 08/12/17 20:55 97 Room Air 08/12/17 20:00 97.5 88 19 138/64 (88) 97 08/12/17 16:14 Room Air 08/12/17 15:16 94 21 08/12/17 15:00 98.3 62 18 135/59 (84) 95 08/12/17 12:00 76 08/12/17 11:47 93 Room Air 08/12/17 11:47 97.4 94 16 137/65 (89) 93 08/12/17 11:00 95 08/12/17 10:33 99 08/12/17 10:00 83 08/12/17 09:00 81 I/O 08/12/17 08/12/17 08/12/17 08/13/17 08/13/17 08/13/17 07:00 15:00 23:00 07:00 15:00 23:00 Intake Total 570 ml 360 ml 200 ml Output Total 350 ml Balance 220 ml 360 ml 200 ml Intake Oral 570 ml 360 ml 200 ml Output Urine Total 350 ml # Voids 1 1 2 3 Result Diagram: 08/12/1760008/12/17600 Objective Remarks GENERAL: Thin built female, NAD SKIN: Warm and dry. HEAD: Normocephalic. EYES: No scleral icterus. No injection or drainage. NECK: Supple, trachea midline. No JVD or lymphadenopathy. CARDIOVASCULAR: Regular rate and rhythm without murmurs, gallops, or rubs. RESPIRATORY: Breath sounds equal bilaterally. No accessory muscle use. GASTROINTESTINAL: Abdomen soft, non-tender, nondistended. MUSCULOSKELETAL: No cyanosis, or edema. BACK: Nontender without obvious deformity. No CVA tenderness. A/P Assessment and Plan Dysnoea and wheezing much improved VC Paralysis HTN PLAN: Decadron mg po bid Aerosol nebs Stable on RA DC plans for home Will FU in office Mian Gao MD Aug 13, 2017 08:24
[2017-08-13] MEDS ORDERED: DEXAMETHASONE 4 MG TAB PO SCH (09:00)
[2017-08-13 09:03] VITALS: PULSE 74
[2017-08-13] MEDS: LOSARTAN 25 MG TAB PO SCH (09:25)
[2017-08-13] MEDS: CARVEDILOL 6.25 MG TAB PO SCH (09:25)
[2017-08-13] MEDS: ASPIRIN EC 81 MG TABEC PO SCH (09:25)
[2017-08-13 10:00] VITALS: PULSE 74
--- NOTE | 2017-08-13 10:25 | PD.CARD.PN ---
Subjective Subjective Remarks Feels much better; no CP or excessive dyspnea, ambulating without difficulties Objective Medications Current Medications Medications (Trade) Dose Ordered Sig/Herman Route Start Time Stop Time Status Last Admin (NS Flush) 2 ml UNSCH PRN IVF 08/08/17 03:15 08/08/17 20:03 (Synthroid) 100 mcg DAILY@0600 PO 08/08/17 09:00 08/13/17 05:37 (Ecotrin Ec) 81 mg DAILY PO 08/09/17 09:00 08/13/17 09:25 Sodium Chloride 1,000 ml @ 84 mls/hr [id number] IV 08/08/17 07:45 08/10/17 05:02 (Tylenol) 650 mg Q6H PRN PO 08/09/17 15:00 08/11/17 22:48 (Cozaar) 25 mg DAILY PO 08/11/17 09:00 08/13/17 09:25 (Coreg) 6.25 mg Q12HR PO 08/10/17 21:00 08/13/17 09:25 (Racepinephrine 2.25% Neb) 0.5 ml Q6HR NEB NEB 08/11/17 20:30 08/13/17 03:21 (Decadron) 4 mg Q12HR PO 08/13/17 09:00 Vital Signs / I&O Vital Signs Date Time Temp Pulse Resp B/P (MAP) Pulse Ox O2 Delivery O2 Flow Rate FiO2 08/13/17 09:03 74 08/13/17 08:00 77 08/13/17 07:00 76 08/13/17 07:00 97.4 93 18 145/73 (97) 94 08/13/17 04:00 97.9 80 18 129/62 (84) 96 08/13/17 00:00 98.5 74 18 106/57 (73) 93 08/12/17 22:22 73 08/12/17 20:55 97 Room Air 08/12/17 20:00 97.5 88 19 138/64 (88) 97 08/12/17 16:14 Room Air 08/12/17 15:16 94 21 08/12/17 15:00 98.3 62 18 135/59 (84) 95 08/12/17 12:00 76 08/12/17 11:47 93 Room Air 08/12/17 11:47 97.4 94 16 137/65 (89) 93 08/12/17 11:00 95 08/12/17 10:33 99 I/O 08/12/17 08/12/17 08/12/17 08/13/17 08/13/17 08/13/17 07:00 15:00 23:00 07:00 15:00 23:00 Intake Total 570 ml 360 ml 200 ml Output Total 350 ml Balance 220 ml 360 ml 200 ml Intake Oral 570 ml 360 ml 200 ml Output Urine Total 350 ml # Voids 1 1 2 3 Physical Exam GENERAL: In NAD SKIN: Warm and dry. HEAD: Normocephalic. EYES: No scleral icterus. No injection or drainage. NECK: Supple, trachea midline. No JVD or lymphadenopathy. CARDIOVASCULAR: Regular rate and rhythm without murmurs, gallops, or rubs. RESPIRATORY: Breath sounds equal bilaterally. No accessory muscle use. Stridor present. GASTROINTESTINAL: Abdomen soft, non-tender, nondistended. MUSCULOSKELETAL: No cyanosis, trace edema. Assessment and Plan Problem List: (1) NSTEMI (non-ST elevated myocardial infarction) ICD Codes: I21.4 - Non-ST elevation (NSTEMI) myocardial infarction Status: Acute (2) Takotsubo cardiomyopathy ICD Codes: I51.81 - Takotsubo syndrome (3) Vocal cord paralysis ICD Codes: J38.00 - Paralysis of vocal cords and larynx, unspecified (4) SOB (shortness of breath) ICD Codes: R06.02 - Shortness of breath Status: Acute (5) CHF (congestive heart failure) ICD Codes: I50.9 - Heart failure, unspecified Assessment and Plan Much improved. No angina or CHF symptoms. Cath with patent coronaries and moderate to severe LV dysfunction c/w TakoTsubo cardiomyopathy. Continue and titrate tx for CHF. Pulmonary evaluation by Dr. Gao; will follow with him as outpatient. D/C home today. F/u w Dr. Orourke after discharge. Kee Phillips MD Aug 13, 2017 10:25
[2017-08-13] MEDS ORDERED: DEXA4TAB PO (10:49)
--- NOTE | 2017-08-13 10:53 | HHI.DCPOC ---
Discharge Care Plan Goals to Promote Your Health * To prevent worsening of your condition and complications follow all discharge instructions * To maintain your health at the optimal level take all medication as prescribed Directions to Meet Your Goals Take your medications as prescribed Follow your dietary instruction Follow activity as directed Keep your appointments as scheduled Take your immunizations and boosters as scheduled If your symptoms worsen call your PCP, if no PCP go to Urgent Care Center or Emergency Room Smoking is Dangerous to Your Health. Avoid second hand smoke Call the 24-hour hour crisis hotline for domestic abuse at Jodee Padron MD Aug 13, 2017 10:53
--- NOTE | 2017-08-13 11:01 | HHI.DS ---
Discharge Summary Admission Date Aug 08, 2017 at 07:23 Discharge Date: Aug 13, 2017 Admitting Diagnosis NSTEMI (1) NSTEMI (non-ST elevated myocardial infarction) ICD Code: I21.4 - Non-ST elevation (NSTEMI) myocardial infarction Diagnosis: Principal Status: Acute (2) Vocal cord paralysis ICD Code: J38.00 - Paralysis of vocal cords and larynx, unspecified (3) Takotsubo cardiomyopathy ICD Code: I51.81 - Takotsubo syndrome Procedures cardiac cath Brief History - From Admission patient is a 77 y/o female with history of vocal cord paralysis after thyroidectomy, and hypertension, who presented to ER with sob. she says that she was at her usual state of health till this morning when she woke up with sob. she denies any chest pain, fever, chills, cough. she says that she had an episode of sob years ago which improved with albuterol treatment. at the time of my evaluation she was in no acute distress however still with sob, no chest pain. she's being followed up by for 'aortic leaky valve'. CBC/BMP: 08/12/17 0601 08/12/17 0601 Significant Findings Laboratory Tests Test 08/11/17 04:40 08/12/17 06:01 Activated Partial Thromboplast Time 31.5 SEC (24.3-30.1) HDL Cholesterol 71.3 MG/DL (40.0-60.0) White Blood Count 11.6 TH/MM3 (4.0-11.0) Red Blood Count 3.58 MIL/MM3 (4.00-5.30) Hematocrit 34.1 % (35.0-46.0) Neutrophils (%) (Auto) 90.5 % (16.0-70.0) Lymphocytes (%) (Auto) 7.1 % (9.0-44.0) Neutrophils # (Auto) 10.5 TH/MM3 (1.8-7.7) Lymphocytes # (Auto) 0.8 TH/MM3 (1.0-4.8) Blood Urea Nitrogen 26 MG/DL (7-18) Random Glucose 145 MG/DL (74-106) Calcium Level 8.2 MG/DL (8.5-10.1) Chloride Level 111 MEQ/L (98-107) Imaging Last Impressions Chest X-Ray 08/08/17 0307 Signed Impressions: Service Date/Time: Tuesday, August 08, 2017 03:10 - CONCLUSION: No significant change. Hazy opacity remains at the lung bases and there is mild cardiomegaly. Behzad Pedroza MD Lung Scan-[facility] Nuclear Medicine 08/08/17 0000 Signed Impressions: Service Date/Time: Tuesday, August 08, 2017 08:37 - CONCLUSION: Low probability for pulmonary embolus. Bj Dudley MD PE at Discharge GENERAL: pleasant SKIN: No rashes, warm and dry HEAD: Atraumatic. Normocephalic. EYES: Pupils equal round and reactive. Extraocular motions intact. No scleral icterus. ENT: Nose without bleeding, or drainage, Airway patent. NECK: Trachea midline. Supple CARDIOVASCULAR: Regular rate and rhythm without murmurs, gallops, or rubs. RESPIRATORY: Fair air entry bilaterally with occasional stridors. No wheezes, rales, or rhonchi. GASTROINTESTINAL: Abdomen soft, non-tender, nondistended. Positive bowel sounds MUSCULOSKELETAL: Extremities without clubbing, cyanosis, or edema. Pedal pulses appreciated NEUROLOGICAL: Awake and alert. Moves all extremity. Normal speech.no focal neurological deficit Pt update on day of discharge Pt feels well. denies any CP/SOB/N/V She is looking forward to going home today Hospital Course - Severe Nonischemic cardiomyopathy EF 30-35% Takotsubo cardiomyopathy received aspirin and was started on Heparin drip. cardiac enzymes reviewed, status post heart catheter, coronary artery patent, EF 30-35% concerning Takutsubo , D/W Dr. medina who has cleared the patient for discharge. f/u w Dr. Orourke as an outpatient. -Vocal cord paralysis: Occasional stridor, initially had a workup including d- dimer; low probability V/Q scan. Pulm evaluated the patient and recommends racemic epi and 1 weeks of decadron. f/u w pulm in 1 week. -hypertension; hold irbesartan and start on metoprolol- stable. -hypothyroidism/ vocal cord paralysis- post thyroidectomy; on levothyroxine Pt Condition on Discharge: Stable Discharge Disposition: Discharge Home Discharge Time: > 30 minutes Discharge Instructions DIET: Follow Instructions for: As Tolerated, No Restrictions Activities you can perform: Regular-No Restrictions Follow up Referrals: Cardiology - 1 Week with Juan Orourke MD PCP Follow-up - 1 Week Pulmonology with Mina Gao MD New Medications: Carvedilol (Coreg) 6.25 Mg Tab 6.25 MG PO Q12HR for cmp, #60 TAB Dexamethasone (Dexamethasone) 4 Mg Tab 4 MG PO Q12HR for Broncospasm, #14 TAB Losartan (Cozaar) 25 Mg Tab 25 MG PO DAILY for htn, #30 TAB [RACEMIC EPINEPHrine 2.25% NEB] () 0.5 ML NEBU 0.5 ML NEB Q8HR, #1 BOX Continued Medications: Albuterol Neb (Albuterol Neb) 2.5 Mg/3 Ml Neb 2.5 MG NEB Q4HR NEB for Breathing Treatment, #60 NEBULE 0 Refills While awake Aspirin DR (Aspirin Adult Low Strength) 81 Mg Tabdr 81 MG PO DAILY, TAB Calcium Carbonate-Cholecalciferol (Calcium 1000 + D) 1,000-800 Mg-Unit Tab 1 TAB PO DAILY, TAB Cholecalciferol (Vitamin D3) 1,000 Unit Tab 1000 UNITS PO DAILY for Nutritional Supplement, #1 BOTTLE 0 Refills Cyanocobalamin (Vitamin B-12) 5,000 Mcg Tab 5000 MCG PO DAILY Glucosamine (Glucosamine) 500 Mg Cap 500 MG PO DAILY for Herbal Supplements, CAP 0 Refills Levothyroxine (Levothyroxine) 100 Mcg Tab 100 MCG PO DAILY for Thyroid, #30 TAB 0 Refills Potassium Gluconate (Potassium Gluconate) 550 Mg Tab 550 MG PO DAILY Discontinued Medications: Irbesartan (Irbesartan) 150 Mg Tab 150 MG PO DAILY for Blood Pressure Management, #30 TAB 0 Refills Noa Moore MD Aug 13, 2017 11:01
[2017-08-13] MEDS ORDERED: [UNRECOGNIZED DRUG - OTHER] NEB (11:10)
== END 2017-08-13 12:43 | disposition home or self-care (01) | DRG 281 ==
LOC: NEPC 02:46 → NEDA 07:23 → N04B 09:42 → HCIS 08-10 16:51 → HCPC 08-10 18:36 → HCIS 08-12 13:13
PROVIDERS: ADMIT Hospitalist; ATTEND Hospitalist
PROC: 4A023N7 Measurement of Cardiac Sampling and Pressure, Left Heart, Percutaneous Approach (ICD-10-PCS; 2017-08-10)
PROC: B2151ZZ Fluoroscopy of Left Heart using Low Osmolar Contrast (ICD-10-PCS; 2017-08-10)
PROC: B2111ZZ Fluoroscopy of Multiple Coronary Arteries using Low Osmolar Contrast (ICD-10-PCS; principal; 2017-08-10 14:45)
DX: I21.4 Non-ST elevation (NSTEMI) myocardial infarction (principal); I51.81 Takotsubo syndrome; I11.0 Hypertensive heart disease with heart failure; J38.00 Paralysis of vocal cords and larynx, unspecified; I50.9 Heart failure, unspecified; E89.0 Postprocedural hypothyroidism; I08.0 Rheumatic disorders of both mitral and aortic valves
CPT/HCPCS: 71010; 76937; 78582; 80048; 80053; 80061; 80076; 82272; 83735; 84484; 85025; 85379; 85610; 85730; 93005; 93306; 93458; 94640; 94664; A9540; A9567; C1769; C1893; J1100; J1200; J1644; J2250; J2930; J7030; J7040; J7613; J7614; J7644; Q9967